=== PATIENT | male | born 1955 | race Caucasian/White ===

== ENCOUNTER 2019-08-22 12:23 | Inpatient (IN) | payer OTHER, SELFPAY ==
[2019-08-17 07:45] VITALS: BMI 22.4
[2019-08-22] VITALS (14 sets, daily range): BP systolic 117–149; BP diastolic 65–95; PULSE 67–79; RESP 10–21; TEMP 36.2–37.1; O2SAT 94–100; BMI 19.1
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
[2019-08-22] MEDS: LACTATED RINGERS 1,000 ML 42 ML IV ×2 (13:45→15:32)
[2019-08-22] MEDS: CLINDAMYCIN 900 MG/50 ML PIGGYBACK 50 MG IV (15:20)
--- NOTE | 2019-08-22 15:20 | SUR.OPER ---
Supine on padded OR bed. Pillow under head, arms secured on padded armboards <90 degree abduction. Safety belt across torso. Non-operative leg secured with tape over blanket over lower leg. Operative leg secured in DeMayo/Javon positioner. Foam padded brace at thigh of operative leg.
[2019-08-22] MEDS: VANCOMYCIN 1,000 MG VIAL 1000 MG TOP (15:35)
[2019-08-22] MEDS: CEFAZOLIN 2 GM/100 ML FROZ.PIGGY IV (15:44)
[2019-08-22] MEDS: BUPIVACAINE 0.25% W/ EPI (PF) 20 ML, TRANEXAMIC ACID 1,000 MG, SODIUM CHLORIDE 0.9% 10 ML INJ (16:29)
[2019-08-22] MEDS: HYDROMORPHONE 2 MG INJ 0.25 MG IV ×3 (17:23→18:50)
--- NOTE | 2019-08-22 17:26 | DI.RAD.S_ITS ---
PROCEDURE: XR KNEE LT 1TO2V INDICATIONS: Post op TECHNIQUE: 2 view(s) of the knee acquired. COMPARISON: [facility] SYDNI Funez, XR KNEE ARTHRITIC SERIES LT, 07/19/2019, 11:30. FINDINGS: Bones: The patient is status post total knee arthroplasty. There is removal of previously seen left prosthesis since the last x-ray. There is a spacer between the distal femur and proximal tibia. Visualized bony structures are intact. Soft tissues: Overlying postoperative changes are noted. IMPRESSION: Removal of the prosthesis with placement of a spacer. Dictated by: Bakari Perez M.D. on 08/23/2019 at 11:22 Approved by: Bakari Perez M.D. on 08/23/2019 at 11:25
[2019-08-22] MEDS: fentaNYL 100 MCG/2 ML INJ 50 MCG IV (17:41)
--- NOTE | 2019-08-22 18:10 | SUR.PHASEI ---
Assumed report from Magdalena, pt medicated with fentanyl and dilaudid. report called to Emery, pain started at 9 to 4, pt transported up to room 213.
--- NOTE | 2019-08-22 18:33 | PC.ADMIT ---
[address] Admission Note: The patient,iRcardo Garcia,64 y/o, was given written information regarding hospital policies, unit procedures and contact persons. Patient's smoking status: Current every day smoker. Vital Signs - 8 hr 08/22/19 13:33 08/22/19 17:00 08/22/19 17:05 Temperature 97.7 F 98.8 F Pulse Rate 68 76 76 Respiratory Rate 16 18 21 Blood Pressure 117/70 141/87 H 138/95 H Pulse Oximetry 100 97 98 08/22/19 17:10 08/22/19 17:25 08/22/19 17:40 Temperature Pulse Rate 71 74 69 Respiratory Rate 18 19 19 Blood Pressure 134/86 149/83 H 133/79 Pulse Oximetry 98 99 99 08/22/19 17:45 08/22/19 17:50 Temperature 97.9 F Pulse Rate 69 67 Respiratory Rate 10 L 14 Blood Pressure 128/80 129/79 Pulse Oximetry 94 100 Patient up from PACU via bed. Patient awake and alert. Denies pain at this time.
[2019-08-22] MEDS: CEFTRIAXONE 2 GM/50 ML FROZ.PIGGY IV (18:43)
[2019-08-22] MEDS: ACETAMINOPHEN 325 MG TABLET 975 MG PO (20:58)
[2019-08-22] MEDS: ASPIRIN EC 81 MG TABLET PO (20:59)
[2019-08-22] MEDS: OXYCODONE IR 10 MG TABLET PO (21:19)
[2019-08-22] MEDS: LACTATED RINGERS 1,000 ML 75 ML IV (22:17)
[2019-08-23] MEDS: OXYCODONE IR 10 MG TABLET PO ×5 (01:04→19:46)
--- NOTE | 2019-08-23 02:38 | PC.NURSE ---
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 Dressing intact to lt knee with hemovac intact and compressed, and EMIGDIO drain green light on. Lt leg immobilizer remains on. Pt has not voided since surgery, and is attempting to use urinal. Vital signs stable. Calf SCD on rt leg only. 0140: Call to Dr. Eng regarding pt being unable to void. Pt states his bladder feels uncomfortably full. Order received to I&O cath as needed for unable to void with over 600cc urine in bladder. 0200: I&O cath in progress: unable to advance catheter into bladder. Pt states he recently had a procedure through the urethra for a kidney stone. Coude catheter size 16 tried, with pt's permission, and catheter was able to advance. 1600cc urine drained from bladder. Pt states he feels much more comfortable.
[2019-08-23 06:00] VITALS: BP 126/70; PULSE 79; RESP 16; TEMP 36.7; O2SAT 98
[2019-08-23 06:47] LABS: Hematocrit 29.8 % (41-53); Hemoglobin 9.7 g/dL (13.5-17.5); Mean Corpuscular HGB Conc 32.7 % (30-36); Mean Corpuscular Hemoglobin 30.4 PG (26-34); Mean Corpuscular Volume 93.1 fL (80-100); Platelet Count 419 X10^3/uL (150-400); Red Cell Distribution Width 14.8 % (11.6-14.8); White Blood Cell Count 12.5 X10^3/uL (4.5-11.0)
--- NOTE | 2019-08-23 07:26 | PM.PNPO.1 ---
Subjective Subjective Date Patient Seen: 08/23/19 Time Patient Seen: 07:28 Interval history: Post op day 1 s/p left knee revision. Patient admitted for IV antibiotic therapy (Ceftriaxone) for joint infection.Overnight patient had urinary retention and had a straight cath (1600 ml removed). Pain was well controlled over night with oxycodone and tylenol. Patient has not ambulated or worked with PT. Patient discussed desire to discharge home with assistance rather than SNF. Patient denies fever, chills, nausea, vomiting, chest pain, shortness of breath. Exam Vital Signs (past 8 hours): - 08/23/19 06:00 Temperature 98.0 F Pulse Rate 79 Respiratory Rate 16 Blood Pressure 126/70 Pulse Oximetry 98 Oxygen Delivery Method Nasal Cannula Oxygen Flow Rate 0 Narrative Exam Narrative: 64 year old male sitting upright in bed comfortably, in no apparent distress. A&Ox3. Knee immobilizer in place on left knee. EMIGDIO dressing CDI. Hemovac in place. Drainage is sanguineous. Sensory function grossly intact to light sensation in lower extremities bilaterally. Patient is able to actively dorsiflex/plantar flex. Dorsalis Pedis 2+ bilaterally. Objective Labs Result Diagrams: 08/23/19 06:10 Labs: Laboratory Results - last 24 hr 08/23/19 06:10 WBC 12.5 H RBC 3.20 L Hgb 9.7 L Hct 29.8 L MCV 93.1 MCH 30.4 MCHC 32.7 RDW 14.8 Plt Count 419 H Assessment & Plan Post-op Postoperative Procedures: Procedures Operation Date: 08/22/19 14:45 Actual Procedures Side Surgeon p Removal of knee prosthesis, placement of antibiotic spacer Left Ross Mejia MD Time Spent With Patient Time with patient: less than 15 minutes Quality VTE Deep Vein Thrombosis/Pulmonary Embolism Present on Admission: No
[2019-08-23 07:52] VITALS: BP 124/68; PULSE 77; RESP 18; TEMP 36.6; O2SAT 97
[2019-08-23] MEDS: ACETAMINOPHEN 325 MG TABLET 975 MG PO ×3 (09:25→21:28)
[2019-08-23] MEDS: ASPIRIN EC 81 MG TABLET PO ×2 (09:26→21:29)
--- NOTE | 2019-08-23 09:29 | PC.NURSE ---
Addendum entered by Janice Moraes R.N. 08/23/19 13:17: Patient called to have SCD removed from right leg, unable to sleep with it on. Reminded pt to preform ankle pumps, removed SCD, drain is compressed, patient denies pain. Addendum entered by Janice Moraes R.N. 08/23/19 13:11: Patient back to bed after working with PT. SCD right leg reapplied, tray table in place, bed rails x [address] in place, drain in place, patient denies SOB, chest pain, N/V, or dizziness at this time. IV is patent and infusing LR @75ml/hr. Patient denies needs at this time. Original Note: Patient repostioned in bed. Reports pain of 8. Patient declined his Atenolol and Dulcolax. Patient denies further needs at this time.
--- NOTE | 2019-08-23 10:59 | DI.RAD.S_ITS ---
PROCEDURE: XR CHEST FOR PICC 1V INDICATIONS: picc line placement TECHNIQUE: One view of the chest was acquired. COMPARISON: [facility], CR, XR CHEST 1 VIEW, 07/06/2019, 13:38. FINDINGS: Surgical changes and devices: A left-sided PICC line catheter is identified with the tip overlying the mid superior vena cava. Lungs and pleura: The included portions of the lungs are grossly unremarkable. Please note that the entire right lung is not included. There is no definite pneumothorax or large effusion. No large area of consolidation is evident. Mediastinum: Mediastinal contours appear normal. Heart size is normal. There is aortic atherosclerosis. Bones and chest wall: No suspicious bony lesions. Overlying soft tissues appear unremarkable. IMPRESSION: Left-sided PICC line catheter is positioned with the tip overlying the mid superior vena cava. Dictated by: Pedro Veloz M.D. on 08/23/2019 at 10:37 Approved by: Pedro Veloz M.D. on 08/23/2019 at 10:38
[2019-08-23 11:04] VITALS: BP 131/80; PULSE 74; RESP 16; TEMP 37; O2SAT 97
--- NOTE | 2019-08-23 12:58 | PT.IIE ---
Current Diagnoses Infection and inflammatory reaction due to other internal orthopedic prosthetic devices, implants and grafts, initial encounter (08/22/19) Presence of left artificial knee joint (08/22/19) Presence of unspecified artificial knee joint (08/22/19) Surgery Performed Operation Date: 08/22/19 14:45 Actual Procedures p Removal of knee prosthesis, placement of antibiotic spacer(Left) - Ross Mejia MD Surgical History (Last Updated 08/17/19 @ 08:33 by Felipa Buckley RN) History of total knee arthroplasty (Acute ~04/2018) Hx of bilateral inguinal hernia repair (Acute) Medical History (Last Updated 08/17/19 @ 08:34 by Felipa Buckley RN) COPD (chronic obstructive pulmonary disease) (Acute) Current every day smoker (Acute) Fatty liver (Acute) Hearing impaired (Acute) HTN (hypertension) (Acute) Kidney stone (Acute ~06/2019) Migraines (Acute) Neuropathy (Acute) PTSD (post-traumatic stress disorder) (Acute) Syncopal episodes (Acute ~06/2019) Physical Therapy Inpatient Evaluation/Re-Eval M1 PT/OT-IP Prior Functional Status Start: 08/23/19 12:19 Freq: NEEDED Status: Active Protocol: Document 08/23/19 12:19 NFW (Rec: 08/23/19 12:58 NFW [id number]) Medical Review Prior Functional Status Medical History Reviewed Yes Communication Patient very open and answers all questions appropriately. Mobility and Gait Prior to recent surgery patient ambulated with a small base quad cane. Activities of Daily Living and IADL's Prior to recent surgery patient reports that was independent with all ADL's and IADL's. Prior Functional Level (Other details) Patient does not drive. His father does all the driving. Patient active in doing all the cooking, his dad does the cleanup. Does the grocery shopping with his dad. Social History Household Members family Living Arrangements Apartment/Condo Number of Floors (Floors) One Floor Home Environment Standard Height Toilet,Tub/ Shower Home Equipment Front Wheel Walker,Four Wheel Walker,Quad Cane,Grab Bars Near Toilet,Grab Bars In Shower Additional Social History Comment Patient lives in an apartment with his Dad. His Dad is 83 yrs old and described by patient to be in good health. M2 PT-IP Current Condition Start: 08/23/19 12:19 Freq: NEEDED Status: Active Protocol: Document 08/23/19 12:19 NFW (Rec: 08/23/19 12:58 NFW [id number]) Physical Therapy Current Condition Current Condition Evaluation Date 08/23/19 Treatment Diagnosis Septic left knee, 08/22/19 had removal of hardware from TKA Precautions Brace Knee Immobilizer - worn at all times Other Precautions Non Weight Bearing LLE Weight Bearing Status Weight Bearing Status Non-Weight Bearing M3 PT-IP Subjective Start: 08/23/19 12:19 Freq: NEEDED Status: Active Protocol: Document 08/23/19 12:19 NFW (Rec: 08/23/19 12:58 NFW [id number]) Subjective Physical Therapy Visit Type Type Initial Evaluation Visit Start Time 11:30 Visit Stop Time 12:15 Total Visit Minutes 45 Number of NASCAR DRIVER Visits 0 Physical Therapy Visit Comments Patient Comments Patient concerned about getting out of bed due to pain in his left knee. Did agree after awhile to proceed with treatment provided. Patient Goals Return to his apartment where he lives with his dad. Therapy Pain Assessment Pain When Pain Assessed During Mobility Pain Present Pain Present Pain Reported Location left knee Intensity 7 Scale Used Numeric (1 - 10) Description Sharp,Shooting Pain Behaviors Facial Grimacing Pain Management Techniques Distraction,Modification of Treatment,Re-positioning, Timing of Activity with Medications M4 PT-IP Mobility and Gait Start: 08/23/19 12:19 Freq: NEEDED Status: Active Protocol: Document 08/23/19 12:19 NFW (Rec: 08/23/19 12:58 [facility] [id number]) PT-Bed Mobility Assessment Supine to Sit Supine to Sit Moderate Assistance,1 Person Assistance Sit to Supine Sit to Supine Moderate Assistance,1 Person Assistance Scooting Scooting to Edge of Bed Minimal Assistance Scooting Up and Down in Bed Minimal Assistance PT-Transfer Assessment Sit to and From Stand Sit to and from Stand Minimal Assistance,1 Person Assistance,Use of Upper Extremities Equipment Transfer Assistive Device Gait Belt,Front Wheeled Walker Orthotic/Prosthetic Devices or Brace: Yes Transfers Transfer Destination Bed Transfer Ability Level of Assist Minimal Assistance,1 Person Assistance Comments Mobility Comments Patient requires assistance with movement and support of LLE when going between supine to sitting and then to standing. Gait Assessment Gait Gait Assistance Required: Contact Guard Assist,1 Person Assist Distance (Feet) 10 Able to Maintain Weight Bearing Status Yes During Gait Assistive Devices Assistive Device Gait Belt,Front Wheeled Walker Orthotic/Prosthetic Devices or Brace: Yes Gait Deviations General Gait Pattern Within Normal Limits Factors Limiting Gait Function Factors Limiting Gait Function Decreased Activity Tolerance, Decreased Strength,Limited Range of Motion,Pain Comments Gait Comments Patient able to ambulate NWB LLE for maximum of 10' in the room. Actual form is good. Restricted mainly by fatigue and some pain and fear of reinjury to LLE. PT-Balance Assessment Comments Other Balance Tests/Deviations/Treatment Unable to test at this time. : Functional Assessments Other Functional Tests Performed Unable to test at this time. M5 PT-IP Objective Assessments Start: 08/23/19 12:19 Freq: NEEDED Status: Active Protocol: Document 08/23/19 12:19 NFW (Rec: 08/23/19 12:58 NFW [id number]) Orientation Orientation/Cognition Level of Alertness Alert Orientation Name,Birthday,Place,Situation Language Function Ability No Deficits Noted Safety Awareness Decreased Safety Awareness Memory Description No Deficits Noted Comments Patient cooperative and initially did not want to participate in any treatment. He performed well but does have fear of increase pain into LLE. Gross Range of Motion Upper Extremity ROM Assessment Within Functional Limits Lower Extremity ROM Impairments ROM LLE not tested, functional ROM right LE. Strength Upper Extremity Strength Assessment Within Functional Limits Lower Extremity Strength Assessment Left Impaired Comments Strength Comments Weak quad set LLE. Apprehensive about performing SLR and did not attempt. Muscle Tone Muscle Tone WNL No M6 PT-IP Treatment Start: 08/23/19 12:19 Freq: NEEDED Status: Active Protocol: Document 08/23/19 12:19 NFW (Rec: 08/23/19 12:58 NF [id number]) Physical Therapy Treatment Exercises Exercises Ankle Pumps,Gluteal Sets,Quad Sets Education Education Provided Precautions,Weight Bearing Status Other Treatments Other Treatment Performed BP at rest 131/64, pulse 76, O2 96. Measured in supine prior to treatment. M7 PT-IP Assessment and Plan Start: 08/23/19 12:19 Freq: NEEDED Status: Active Protocol: Document 08/23/19 12:19 NFW (Rec: 08/23/19 12:58 NFW [id number]) PT Summary Assessment and Plan Potential Rehabilitation Potential Excellent Status of Condition at Evaluation Evolving Summary Impairments Pain,ROM,Strength,Balance, Coordination,Sensation,Tone, Cognition,Bed Mobility, Transfers,Gait,Activity Tolerance Progress Towards Goals Progressing Toward Goals Assessment Summary Patient s/p removal of total knee prosthesis secondary to sepsis. Spacer placed. Limited at this point by pain and swelling LLE and fear of reinjury to LLE. Good awareness of NWB statis. Goals Bed Mobility Goal Independent Transfer Goal Independent,Front Wheeled Walker Gait Goal Independent,Front Wheel Walker Gait Distance 200 Days to Meet Goals 3 Frequency of Treatment Frequency Of Treatment Twice a Day Treatment Plan Physical Therapy Treatment Plan Bed Mobility Training,Transfer Training,Gait Training, Therapeutic Exercise,Balance Retraining,Post Op Education, Discharge Planning, Coordination Retraining Recommendations To Nursing Amount of Assist Needed 1 Person Assist Discharge Recommendations PT Discharge Recommendations Home with Assistance Equipment Needed for Home Before Possible raised toilet seat. Discharge
[2019-08-23 16:00] VITALS: BP 117/69; PULSE 74; RESP 18; TEMP 36.6; O2SAT 97
--- NOTE | 2019-08-23 17:17 | PT.IPTN ---
Current Diagnoses Infection and inflammatory reaction due to other internal orthopedic prosthetic devices, implants and grafts, initial encounter (08/22/19) Presence of left artificial knee joint (08/22/19) Presence of unspecified artificial knee joint (08/22/19) Surgery Performed Operation Date: 08/22/19 14:45 Actual Procedures p Removal of knee prosthesis, placement of antibiotic spacer(Left) - Ross Mejia MD Physical Therapy Treatment Note M2 PT-IP Current Condition Start: 08/23/19 12:19 Freq: NEEDED Status: Active Protocol: Document 08/23/19 12:19 NFW (Rec: 08/23/19 12:58 NFW [id number]) Physical Therapy Current Condition Current Condition Evaluation Date 08/23/19 Treatment Diagnosis Septic left knee, 08/22/19 had removal of hardware from TKA Precautions Brace Knee Immobilizer - worn at all times Other Precautions Non Weight Bearing LLE Weight Bearing Status Weight Bearing Status Non-Weight Bearing M3 PT-IP Subjective Start: 08/23/19 12:19 Freq: NEEDED Status: Active Protocol: Document 08/23/19 17:15 NFW (Rec: 08/23/19 17:17 NFW [id number]) Subjective Physical Therapy Visit Type Type Patient Refusal Notes Patient just received his pizza that he was been waiting for all day. Requested to hold on PT and that he will work doubly hard tomorrow. Patient did perform well in therapy this morning. Needs most assist in lifting or lowering LLE when getting in and out of bed. M4 PT-IP Mobility and Gait Start: 08/23/19 12:19 Freq: NEEDED Status: Active Protocol: Document 08/23/19 12:19 NFW (Rec: 08/23/19 12:58 NFW [id number]) PT-Bed Mobility Assessment Supine to Sit Supine to Sit Moderate Assistance,1 Person Assistance Sit to Supine Sit to Supine Moderate Assistance,1 Person Assistance Scooting Scooting to Edge of Bed Minimal Assistance Scooting Up and Down in Bed Minimal Assistance PT-Transfer Assessment Sit to and From Stand Sit to and from Stand Minimal Assistance,1 Person Assistance,Use of Upper Extremities Equipment Transfer Assistive Device Gait Belt,Front Wheeled Walker Orthotic/Prosthetic Devices or Brace: Yes Transfers Transfer Destination Bed Transfer Ability Level of Assist Minimal Assistance,1 Person Assistance Comments Mobility Comments Patient requires assistance with movement and support of LLE when going between supine to sitting and then to standing. Gait Assessment Gait Gait Assistance Required: Contact Guard Assist,1 Person Assist Distance (Feet) 10 Able to Maintain Weight Bearing Status Yes During Gait Assistive Devices Assistive Device Gait Belt,Front Wheeled Walker Orthotic/Prosthetic Devices or Brace: Yes Gait Deviations General Gait Pattern Within Normal Limits Factors Limiting Gait Function Factors Limiting Gait Function Decreased Activity Tolerance, Decreased Strength,Limited Range of Motion,Pain Comments Gait Comments Patient able to ambulate NWB LLE for maximum of 10' in the room. Actual form is good. Restricted mainly by fatigue and some pain and fear of reinjury to LLE. PT-Balance Assessment Comments Other Balance Tests/Deviations/Treatment Unable to test at this time. : Functional Assessments Other Functional Tests Performed Unable to test at this time. M5 PT-IP Objective Assessments Start: 08/23/19 12:19 Freq: NEEDED Status: Active Protocol: Document 08/23/19 12:19 NFW (Rec: 08/23/19 12:58 NFW [id number]) Orientation Orientation/Cognition Level of Alertness Alert Orientation Name,Birthday,Place,Situation Language Function Ability No Deficits Noted Safety Awareness Decreased Safety Awareness Memory Description No Deficits Noted Comments Patient cooperative and initially did not want to participate in any treatment. He performed well but does have fear of increase pain into LLE. Gross Range of Motion Upper Extremity ROM Assessment Within Functional Limits Lower Extremity ROM Impairments ROM LLE not tested, functional ROM right LE. Strength Upper Extremity Strength Assessment Within Functional Limits Lower Extremity Strength Assessment Left Impaired Comments Strength Comments Weak quad set LLE. Apprehensive about performing SLR and did not attempt. Muscle Tone Muscle Tone WNL No M6 PT-IP Treatment Start: 08/23/19 12:19 Freq: NEEDED Status: Active Protocol: Document 08/23/19 12:19 NFW (Rec: 08/23/19 12:58 NFW [id number]) Physical Therapy Treatment Exercises Exercises Ankle Pumps,Gluteal Sets,Quad Sets Education Education Provided Precautions,Weight Bearing Status Other Treatments Other Treatment Performed BP at rest 131/64, pulse 76, O2 96. Measured in supine prior to treatment. M7 PT-IP Assessment and Plan Start: 08/23/19 12:19 Freq: NEEDED Status: Active Protocol: Document 08/23/19 12:19 NFW (Rec: 08/23/19 12:58 KEIRA [id number]) PT Summary Assessment and Plan Potential Rehabilitation Potential Excellent Status of Condition at Evaluation Evolving Summary Impairments Pain,ROM,Strength,Balance, Coordination,Sensation,Tone, Cognition,Bed Mobility, Transfers,Gait,Activity Tolerance Progress Towards Goals Progressing Toward Goals Assessment Summary Patient s/p removal of total knee prosthesis secondary to sepsis. Spacer placed. Limited at this point by pain and swelling LLE and fear of reinjury to LLE. Good awareness of NWB statis. Goals Bed Mobility Goal Independent Transfer Goal Independent,Front Wheeled Walker Gait Goal Independent,Front Wheel Walker Gait Distance 200 Days to Meet Goals 3 Frequency of Treatment Frequency Of Treatment Twice a Day Treatment Plan Physical Therapy Treatment Plan Bed Mobility Training,Transfer Training,Gait Training, Therapeutic Exercise,Balance Retraining,Post Op Education, Discharge Planning, Coordination Retraining Recommendations To Nursing Amount of Assist Needed 1 Person Assist Discharge Recommendations PT Discharge Recommendations Home with Assistance Equipment Needed for Home Before Possible raised toilet seat. Discharge
[2019-08-23] MEDS: CEFTRIAXONE 2 GM/50 ML FROZ.PIGGY IV (17:45)
[2019-08-23 20:00] VITALS: BP 123/79; PULSE 74; RESP 18; TEMP 36.3; O2SAT 99
[2019-08-23] MEDS: DOCUSATE 100 MG CAPSULE PO (21:29)
[2019-08-24] VITALS: BP 123/74; PULSE 70; RESP 16; TEMP 37.2; O2SAT 97
[2019-08-24] MEDS: OXYCODONE IR 10 MG TABLET PO (00:02)
[2019-08-24] MEDS: LACTATED RINGERS 1,000 ML 75 ML IV ×2 (00:07→13:26)
--- NOTE | 2019-08-24 01:23 | PC.NURSE ---
Administrative Project Coordinator Note: 0015: Awake, resting in bed. Vital signs stable. PICC in place in lt upper arm with dressing cdi; no redness, drainage or swelling at site; LR infusing at 75cc/hr. IV in lt AC in place, saline locked. Lt knee immobilizer remains on; hemovac intact and compressed, EMIGDIO drain with green light on. Pt having pain in lt knee; medicated with Oxycodone 10mg po. Pt states that this pain medication is not providing much pain relief. 0115: Call to Dr. Eng regarding Oxycodone being ineffective pain medication. New orders are to try Dilaudid 2-4mg po Q3hrs PRN for pain. Pt sleeping at this time.
[2019-08-24] MEDS: HYDROMORPHONE 2 MG TABLET 4 MG PO (03:40)
[2019-08-24 06:25] VITALS: BP 118/68; PULSE 69; RESP 16; TEMP 36.6; O2SAT 98
[2019-08-24 07:18] VITALS: BP 119/69; PULSE 74; RESP 18; TEMP 36.8; O2SAT 98
--- NOTE | 2019-08-24 08:18 | P.PN_ITS ---
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 Continues to complain of noticeable pain. He states he has not been doing weight-bearing on the left leg because of increased knee pain. He was treated with oxycodone 10 mg initially but was not getting good relief. He was then tried on Dilaudid 4 mg states that did not work well. He states he has had the best relief with Percocet. He had also has ibuprofen 800 mg ordered which he has not been getting. He does have a PICC line and receiving ceftriaxone 2 g q.d.. Cultures are still pending for final. Patient lives with his father who is 83 years old and not able to really help him much. Patient is interested in considering SNF for few days before going home. Hemovac drain 50 mL the past shift and 310 for the past 24 hours. Exam Vital Signs (past 8 hours): - 08/24/19 06:25 Temperature 97.8 F Pulse Rate 69 Respiratory Rate 16 Blood Pressure 118/68 Pulse Oximetry 98 Oxygen Delivery Method Room Air Oxygen Flow Rate 0 Narrative Exam Narrative: Alert, oriented no acute distress lying in bed. Left leg. Kendy dressing to left knee. Hemovac in place. No calf pain or swelling. Knee immobilizer in place. Moderate swelling of the left knee. Noted full pain with movement of the knee. Objective Labs Result Diagrams: 08/23/19 06:10 Assessment & Plan Post-op Postoperative Procedures: Procedures Operation Date: 08/22/19 14:45 Actual Procedures Side Surgeon p Removal of knee prosthesis, placement of antibiotic spacer Left Ross Mejia MD Will change patient's pain medication to Percocet to see if this gives him better relief. Will also have him start taking ibuprofen 800 mg regularly. Will keep Hemovac in today because of drainage. Awaiting final on culture results to plan antibiotic discharge. Will discuss with finished goods planner about SNF. Quality VTE Deep Vein Thrombosis/Pulmonary Embolism Present on Admission: No
[2019-08-24] MEDS: IBUPROFEN 400 MG TABLET 800 MG PO ×3 (08:35→21:41)
[2019-08-24] MEDS: OXYCODONE/ACETAMINOPHEN 5/325 TABLET 2 TAB PO ×3 (08:35→18:24)
[2019-08-24] MEDS: ATENOLOL 25 MG TABLET PO (08:35)
[2019-08-24] MEDS: ASPIRIN EC 81 MG TABLET PO (08:35)
[2019-08-24] MEDS: DOCUSATE 100 MG CAPSULE PO (08:36)
--- NOTE | 2019-08-24 11:15 | PT.IPTN ---
Current Diagnoses Infection and inflammatory reaction due to other internal orthopedic prosthetic devices, implants and grafts, initial encounter (08/22/19) Presence of left artificial knee joint (08/22/19) Presence of unspecified artificial knee joint (08/22/19) Surgery Performed Operation Date: 08/22/19 14:45 Actual Procedures p Removal of knee prosthesis, placement of antibiotic spacer(Left) - Ross Mejia MD Physical Therapy Treatment Note M2 PT-IP Current Condition Start: 08/23/19 12:19 Freq: NEEDED Status: Active Protocol: Document 08/23/19 12:19 NFW (Rec: 08/23/19 12:58 NFW [id number]) Physical Therapy Current Condition Current Condition Evaluation Date 08/23/19 Treatment Diagnosis Septic left knee, 08/22/19 had removal of hardware from TKA Precautions Brace Knee Immobilizer - worn at all times Other Precautions Non Weight Bearing LLE Weight Bearing Status Weight Bearing Status Non-Weight Bearing M3 PT-IP Subjective Start: 08/23/19 12:19 Freq: NEEDED Status: Active Protocol: Document 08/24/19 11:15 GGD (Rec: 08/24/19 11:48 GGD [id number]) Subjective Physical Therapy Visit Type Type Treatment Note Visit Start Time 10:50 Visit Stop Time 11:13 Total Visit Minutes 23 Number of RUBBER COMPOUNDER FORMULATOR Visits 1 Physical Therapy Visit Comments Patient Comments Pt states he needs to use the bathroom. Therapy Pain Assessment Pain When Pain Assessed During Mobility Pain Present Pain Present Pain Reported M4 PT-IP Mobility and Gait Start: 08/23/19 12:19 Freq: NEEDED Status: Active Protocol: Document 08/24/19 11:15 GGD (Rec: 08/24/19 11:48 GGD [id number]) PT-Bed Mobility Assessment Supine to Sit Supine to Sit Moderate Assistance,1 Person Assistance Sit to Supine Sit to Supine Moderate Assistance,1 Person Assistance Scooting Scooting to Edge of Bed Minimal Assistance Scooting Up and Down in Bed Minimal Assistance PT-Transfer Assessment Sit to and From Stand Sit to and from Stand Minimal Assistance,1 Person Assistance,Use of Upper Extremities Equipment Transfer Assistive Device Gait Belt,Front Wheeled Walker Orthotic/Prosthetic Devices or Brace: Yes Transfers Transfer Destination Bed Transfer Ability Level of Assist Minimal Assistance,1 Person Assistance Comments Mobility Comments Mod A for left LE with bed mobility. Gait Assessment Gait Gait Assistance Required: Contact Guard Assist,1 Person Assist Distance (Feet) 25 Able to Maintain Weight Bearing Status Yes During Gait Assistive Devices Assistive Device Gait Belt,Front Wheeled Walker Orthotic/Prosthetic Devices or Brace: Yes Gait Deviations General Gait Pattern Within Normal Limits Factors Limiting Gait Function Factors Limiting Gait Function Decreased Activity Tolerance, Decreased Strength,Limited Range of Motion,Pain M5 PT-IP Objective Assessments Start: 08/23/19 12:19 Freq: NEEDED Status: Active Protocol: Document 08/23/19 12:19 NFW (Rec: 08/23/19 12:58 NFW [id number]) Orientation Orientation/Cognition Level of Alertness Alert Orientation Name,Birthday,Place,Situation Language Function Ability No Deficits Noted Safety Awareness Decreased Safety Awareness Memory Description No Deficits Noted Comments Patient cooperative and initially did not want to participate in any treatment. He performed well but does have fear of increase pain into LLE. Gross Range of Motion Upper Extremity ROM Assessment Within Functional Limits Lower Extremity ROM Impairments ROM LLE not tested, functional ROM right LE. Strength Upper Extremity Strength Assessment Within Functional Limits Lower Extremity Strength Assessment Left Impaired Comments Strength Comments Weak quad set LLE. Apprehensive about performing SLR and did not attempt. Muscle Tone Muscle Tone WNL No M6 PT-IP Treatment Start: 08/23/19 12:19 Freq: NEEDED Status: Active Protocol: Document 08/24/19 11:15 GGD (Rec: 08/24/19 11:48 GGD [id number]) Physical Therapy Treatment Exercises Exercises Ankle Pumps,Gluteal Sets,Quad Sets Education Education Provided Precautions,Weight Bearing Status M7 PT-IP Assessment and Plan Start: 08/23/19 12:19 Freq: NEEDED Status: Active Protocol: Document 08/24/19 11:15 GGD (Rec: 08/24/19 11:48 GGD [id number]) PT Summary Assessment and Plan Summary Assessment Summary Pt needs mod A with left LE with bed mobility. Pt was able to progress gait distance with NWB on left LE. Frequency of Treatment Frequency Of Treatment Twice a Day Treatment Plan Physical Therapy Treatment Plan Bed Mobility Training,Transfer Training,Gait Training, Therapeutic Exercise,Balance Retraining,Post Op Education, Discharge Planning, Coordination Retraining Recommendations To Nursing Amount of Assist Needed 1 Person Assist Discharge Recommendations PT Discharge Recommendations Home with Assistance
[2019-08-24 12:27] VITALS: BP 137/89; PULSE 66; RESP 16; TEMP 36.8; O2SAT 98
--- NOTE | 2019-08-24 13:00 | PC.NURSE ---
day shift pt having issues with pain control overnight. States PO dilaudid does not help nor does oxycodone. Pt states only thing that has helped in percocet. Explained to pt that that is oxy and tylenol, he will not believe it. Notified PA and order for percocet obtained. This was given with ibuprofen. Pt sleeping afterwards. on awakening, states pain is 3-4/10 and he will alert staff when he needs more meds. culture from knee grew staph aureus, unsure of sensitivities yet. Placed on contact precautions until MRSA r/o. Notified , she started pt on vanco in addition to current abx. pt very nervous about precautions and word MRSA. explained to pt and he was reassured.
[2019-08-24] MEDS: VANCOMYCIN 1,000 MG/200 ML PIGGYBACK 200 MG IV (13:27)
[2019-08-24 14:46] LABS: BUN Creatinine Ratio 17.5 (6-22); Blood Urea Nitrogen 14 mg/dL (9-20); Calcium 8.8 mg/dL (8.4-10.2); Carbon Dioxide 29 mmol/L (22-32); Chloride 102 mmol/L (98-107); Estimated Glomerular Filt Rate > 60.0 mL/min (>60); Glucose 101 mg/dL (80-110); Potassium 4.5 mmol/L (3.4-5.1); Sodium 139 mmol/L (137-145)
[2019-08-24 14:50] LABS: HEMOLYSIS 51 (0-50)
--- NOTE | 2019-08-24 15:10 | PT.IPTN ---
Current Diagnoses Infection and inflammatory reaction due to other internal orthopedic prosthetic devices, implants and grafts, initial encounter (08/22/19) Presence of left artificial knee joint (08/22/19) Presence of unspecified artificial knee joint (08/22/19) Surgery Performed Operation Date: 08/22/19 14:45 Actual Procedures p Removal of knee prosthesis, placement of antibiotic spacer(Left) - Ross Mejia MD Physical Therapy Treatment Note M2 PT-IP Current Condition Start: 08/23/19 12:19 Freq: NEEDED Status: Active Protocol: Document 08/23/19 12:19 NFW (Rec: 08/23/19 12:58 NFW [id number]) Physical Therapy Current Condition Current Condition Evaluation Date 08/23/19 Treatment Diagnosis Septic left knee, 08/22/19 had removal of hardware from TKA Precautions Brace Knee Immobilizer - worn at all times Other Precautions Non Weight Bearing LLE Weight Bearing Status Weight Bearing Status Non-Weight Bearing M3 PT-IP Subjective Start: 08/23/19 12:19 Freq: NEEDED Status: Active Protocol: Document 08/24/19 15:10 AB (Rec: 08/24/19 17:09 AB [id number]) Subjective Physical Therapy Visit Type Type Treatment Note Visit Start Time 15:10 Visit Stop Time 15:47 Total Visit Minutes 37 Number of COMPLAINT INSPECTOR Visits 0 Physical Therapy Visit Comments Patient Comments pt agreeable to do PT Therapy Pain Assessment Pain When Pain Assessed At Rest Pain Present Pain Present Pain Reported Location left knee Intensity 4 Scale Used increased to 7/10 with mobility Pain Behaviors Facial Grimacing,Holding Area, Wincing Pain Management Techniques Modification of Treatment, Timing of Activity with Medications M4 PT-IP Mobility and Gait Start: 08/23/19 12:19 Freq: NEEDED Status: Active Protocol: Document 08/24/19 15:10 AB (Rec: 08/24/19 17:09 AB [id number]) PT-Bed Mobility Assessment Supine to Sit Supine to Sit Moderate Assistance,1 Person Assistance Sit to Supine Sit to Supine Moderate Assistance,1 Person Assistance PT-Transfer Assessment Sit to and From Stand Sit to and from Stand Contact Guard Assistance,1 Person Assistance,Use of Upper Extremities Equipment Transfer Assistive Device Gait Belt,Front Wheeled Walker Orthotic/Prosthetic Devices or Brace: Yes Transfers Transfer Destination Toilet Transfer Technique pt ambulated to the toilet using FWW Transfer Ability Level of Assist Standby Assistance,Contact Guard Assistance,1 Person Assistance,Use of Upper Extremities Comments Mobility Comments pt completed bed mobility supine to sit mod A to assist LLE. pt also positioned RLE under LLE to assist. pt completed sit to stand CGA and requested to use the toilet and ambulated to the toilet using FWW SBA. Pt was able to maintain standing using FWW while toileting. pt was able to maintain NWB on LLE. pt went back to bed and ambulated using FWW SBA. pt completed sit to supine mod A and cues requiring assist to elevated LLE up in bed. pt used RLE to assist LLE. positioned pt in bed. pt inquired regarding adaptive equipement: leg human insights lead ads marketing, dress aide etc. asked pt if he wants to do trainign with use of leg human insights lead ads marketing and agreed to do it next tx session. call light and table placed within reach. Gait Assessment Gait Gait Assistance Required: Standby Assistance Distance (Feet) 10 Able to Maintain Weight Bearing Status Yes During Gait Assistive Devices Assistive Device Gait Belt,Front Wheeled Walker Orthotic/Prosthetic Devices or Brace: Yes Factors Limiting Gait Function Factors Limiting Gait Function Decreased Activity Tolerance, Decreased Strength,Difficulty Following Directions,Limited Range of Motion,Pain,Poor Balance,Poor Safety Awareness Comments Gait Comments pt ambulated in room to transfer bed <>toilet using FWW. pls refer to mobility section for details. M5 PT-IP Objective Assessments Start: 08/23/19 12:19 Freq: NEEDED Status: Active Protocol: Document 08/23/19 12:19 NFW (Rec: 08/23/19 12:58 NFW [id number]) Orientation Orientation/Cognition Level of Alertness Alert Orientation Name,Birthday,Place,Situation Language Function Ability No Deficits Noted Safety Awareness Decreased Safety Awareness Memory Description No Deficits Noted Comments Patient cooperative and initially did not want to participate in any treatment. He performed well but does have fear of increase pain into LLE. Gross Range of Motion Upper Extremity ROM Assessment Within Functional Limits Lower Extremity ROM Impairments ROM LLE not tested, functional ROM right LE. Strength Upper Extremity Strength Assessment Within Functional Limits Lower Extremity Strength Assessment Left Impaired Comments Strength Comments Weak quad set LLE. Apprehensive about performing SLR and did not attempt. Muscle Tone Muscle Tone WNL No M6 PT-IP Treatment Start: 08/23/19 12:19 Freq: NEEDED Status: Active Protocol: Document 08/24/19 15:10 AB (Rec: 08/24/19 17:09 AB [id number]) Physical Therapy Treatment Education Education Provided Weight Bearing Status,Safety M7 PT-IP Assessment and Plan Start: 08/23/19 12:19 Freq: NEEDED Status: Active Protocol: Document 08/24/19 15:10 AB (Rec: 08/24/19 17:09 AB [id number]) PT Summary Assessment and Plan Potential Rehabilitation Potential Good Summary Impairments Pain,ROM,Strength,Balance, Coordination,Sensation,Tone, Cognition,Bed Mobility, Transfers,Gait,Activity Tolerance Progress Towards Goals Progressing Toward Goals Assessment Summary pt requiring mod A with bed mobility and SBA to CGA with transfers/ambulation using FWW . Pt is NWB on LLE affecting independence. pt will not have much assistance at home and stated that his father might help some. Pt also will have ongoing IV antibiotic needs per doctor's note. d/c plan depending on mobility progress and assistance at home but may require SNF for IV antibiotic needs. will continue to assess. Goals Bed Mobility Goal Independent Transfer Goal Independent,Front Wheeled Walker Gait Goal Independent,Front Wheel Walker Gait Distance 200 Days to Meet Goals 3 Frequency of Treatment Frequency Of Treatment Once a Day Treatment Plan Physical Therapy Treatment Plan Bed Mobility Training,Transfer Training,Gait Training, Therapeutic Exercise,Balance Retraining,Post Op Education, Discharge Planning, Coordination Retraining Other Recommendations and Next Treatment transfers, ambulation, leg Focus human insights lead ads marketing use Recommendations To Nursing Amount of Assist Needed 1 Person Assist Discharge Recommendations PT Discharge Recommendations Home with Assistance,SNF Rehab
[2019-08-24 15:55] VITALS: BP 123/73; PULSE 60; RESP 18; TEMP 36.3; O2SAT 98
--- NOTE | 2019-08-24 16:08 | CM.IDA ---
Initial DCP Assessment Note: Pt is a 64 yo male, resident of [facility]. 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 PCP: Shruti Sharma [place]: [place] Reviewed chart. TC placed to Iva Hernandez [place] P# [phone]. Discussed pt's need for 6 wks IV abx w/ NWbing on knee and no support at home = need for SNF. Pt is not service connected and does not qualify for SNF covered by [place] although he does have Medicare A+B sec to disability benefits. Iva explained that he could potentially go to SNF Med [facility], and through the correct channels and referrals by the [place] clinic staff he could go home after the 20 days w/Home infusion covered by his [place] coverage. Later listed to a VM from [facility] [place] P# [phone] who explained Iva had started the process to make referral for potential home infusion and Tatyana had questions to include what MD would follow IV abx after DC ? What is the drug, dosing, duration etc? PICC? and Infusion Co of choice? Met w/pt to review above and DC options. Pt hopeful to DC to a SNF in [facility] and has no SNF preference. Explained Medicare benefit, pt states he has Medicare, Medicaid (food stamps, no medical assist?) and [place] Choice. Pt gave cards for this [employer] to copy. Pt wants hospital to bill [facility] per admission notes. This [employer] unable to begin SNF search today, PASRR needs to be completed. P: DC likely to SNF w/ Med A for IV abx over the next day or two, awaiting results on sensitivities In addition: will pt's Medicaid assist w/ co-pay at SNF on the day? If not, Pt may need to transition home w/assist from [place] for home infusion after 20 days at SNF [facility]
[2019-08-24] MEDS: CEFTRIAXONE 2 GM/50 ML FROZ.PIGGY IV (18:15)
[2019-08-24 19:31] LABS: Vancomycin Trough 8.2 ug/mL (10-20)
[2019-08-24 19:35] VITALS: BP 110/55; PULSE 62; RESP 18; TEMP 36.6; O2SAT 99
[2019-08-24] MEDS: VANCOMYCIN 1,250 MG in SODIUM CHLORIDE 0.9% 250 ML IV (19:58)
[2019-08-24] MEDS: ACETAMINOPHEN 325 MG TABLET 975 MG PO (20:07)
--- NOTE | 2019-08-24 22:29 | PC.NURSE ---
Pt is A and O x 4, VSS. He has ambulated to BR with SBA x 1 and FWW but prefers urinal after dinner. Px is 4-7/10 and pt can only lift L leg 1/2 off mattress. Good CMS and able to wiggle all toes. He has worn his knee brace 50% of the time and when he was working with PT. SCD on ZR leg is on. Pt is voiding qs clear yellow and has + BTs.
[2019-08-25] VITALS (7 sets, daily range): BP systolic 112–139; BP diastolic 61–80; PULSE 61–67; RESP 16–22; TEMP 36.3–36.9; O2SAT 98–99
[2019-08-25] MEDS: OXYCODONE/ACETAMINOPHEN 5/325 TABLET 2 TAB PO ×2 (00:35→17:58)
--- NOTE | 2019-08-25 02:07 | PC.NURSE ---
Pt has pain level 6/10 this night. Medicated w/ 2 percocet. Dressing is clean/dry and intact. Pt refuses to use Incentive spirometer, when trying to educate him on the use and benefits, he cut me off and stated I am going to throw the fucking thing away. Pt has one SCD on right leg applied. Pt's CMS is positive. Pt was educated about coughing and deep breathing. Call light is within reach.
[2019-08-25] MEDS: IBUPROFEN 400 MG TABLET 800 MG PO (03:50)
[2019-08-25] MEDS: VANCOMYCIN 1,250 MG in SODIUM CHLORIDE 0.9% 250 ML IV ×3 (03:51→21:10)
[2019-08-25] MEDS: OXYCODONE IR 10 MG TABLET PO ×4 (04:40→23:53)
[2019-08-25] MEDS: LACTATED RINGERS 1,000 ML 75 ML IV (06:38)
[2019-08-25] MEDS: ATENOLOL 25 MG TABLET PO (08:22)
[2019-08-25] MEDS: ASPIRIN EC 81 MG TABLET PO ×2 (08:22→21:11)
[2019-08-25] MEDS: DOCUSATE 100 MG CAPSULE PO ×2 (08:22→21:12)
--- NOTE | 2019-08-25 10:22 | PT.IPTN ---
Current Diagnoses Infection and inflammatory reaction due to other internal orthopedic prosthetic devices, implants and grafts, initial encounter (08/22/19) Presence of left artificial knee joint (08/22/19) Presence of unspecified artificial knee joint (08/22/19) Surgery Performed Operation Date: 08/22/19 14:45 Actual Procedures p Removal of knee prosthesis, placement of antibiotic spacer(Left) - Ross Mejia MD Physical Therapy Treatment Note M2 PT-IP Current Condition Start: 08/23/19 12:19 Freq: NEEDED Status: Active Protocol: Document 08/23/19 12:19 NFW (Rec: 08/23/19 12:58 NFW [id number]) Physical Therapy Current Condition Current Condition Evaluation Date 08/23/19 Treatment Diagnosis Septic left knee, 08/22/19 had removal of hardware from TKA Precautions Brace Knee Immobilizer - worn at all times Other Precautions Non Weight Bearing LLE Weight Bearing Status Weight Bearing Status Non-Weight Bearing M3 PT-IP Subjective Start: 08/23/19 12:19 Freq: NEEDED Status: Active Protocol: Document 08/25/19 10:22 AB (Rec: 08/25/19 11:45 AB [email or web address]) Subjective Physical Therapy Visit Type Type Treatment Note Visit Start Time 10:22 Visit Stop Time 10:53 Total Visit Minutes 31 Number of ASSEMBLER SHOW MOTOR Visits 0 Physical Therapy Visit Comments Patient Comments pt requesting to use the toilet Therapy Pain Assessment Pain When Pain Assessed During Mobility Location left knee Intensity 6 Scale Used Numeric (1 - 10) Pain Behaviors Guarding,Holding Area,Wincing M4 PT-IP Mobility and Gait Start: 08/23/19 12:19 Freq: NEEDED Status: Active Protocol: Document 08/25/19 10:22 AB (Rec: 08/25/19 11:45 AB [id number]) PT-Bed Mobility Assessment Supine to Sit Supine to Sit Moderate Assistance,1 Person Assistance Sit to Supine Sit to Supine Moderate Assistance,1 Person Assistance PT-Transfer Assessment Sit to and From Stand Sit to and from Stand Contact Guard Assistance Equipment Transfer Assistive Device Gait Belt,Front Wheeled Walker Orthotic/Prosthetic Devices or Brace: No Transfers Transfer Destination Toilet Transfer Technique pt ambulated using FWW Transfer Ability Level of Assist Contact Guard Assistance,1 Person Assistance,Use of Upper Extremities Comments Mobility Comments pt requesting to use the toilet. assisted with knee immobilizer adjustment. pt completed supine to sit with HOB elevated. pt used leg clinical cytopathologist but stated that it is causing him more pain and does not want to use it to get back to bed. pt required assist to move LLE to EOB. pt completed sit to stand CGA and ambulated into the toilet using FWW CGA. pt was able to maintain standing using FWW for support SBA while toileting. pt ambulated a few more time in the room and requested to go back to bed afterwards. completed sit to supine mod A to elevate LLE. pt used RLE to assist LLE. positioned pt in bed. call light and table placed within reach. Gait Assessment Gait Gait Assistance Required: Standby Assistance,Contact Guard Assist Distance (Feet) 30 Able to Maintain Weight Bearing Status Yes During Gait Assistive Devices Assistive Device Gait Belt,Front Wheeled Walker Orthotic/Prosthetic Devices or Brace: Yes Factors Limiting Gait Function Factors Limiting Gait Function Decreased Activity Tolerance, Decreased Strength,Limited Range of Motion,Pain,Poor Balance M5 PT-IP Objective Assessments Start: 08/23/19 12:19 Freq: NEEDED Status: Active Protocol: Document 08/23/19 12:19 NFW (Rec: 08/23/19 12:58 NFW [id number]) Orientation Orientation/Cognition Level of Alertness Alert Orientation Name,Birthday,Place,Situation Language Function Ability No Deficits Noted Safety Awareness Decreased Safety Awareness Memory Description No Deficits Noted Comments Patient cooperative and initially did not want to participate in any treatment. He performed well but does have fear of increase pain into LLE. Gross Range of Motion Upper Extremity ROM Assessment Within Functional Limits Lower Extremity ROM Impairments ROM LLE not tested, functional ROM right LE. Strength Upper Extremity Strength Assessment Within Functional Limits Lower Extremity Strength Assessment Left Impaired Comments Strength Comments Weak quad set LLE. Apprehensive about performing SLR and did not attempt. Muscle Tone Muscle Tone WNL No M6 PT-IP Treatment Start: 08/23/19 12:19 Freq: NEEDED Status: Active Protocol: Document 08/25/19 10:22 AB (Rec: 08/25/19 11:45 AB [email or web address]) Physical Therapy Treatment Education Education Provided Precautions,Weight Bearing Status,Safety M7 PT-IP Assessment and Plan Start: 08/23/19 12:19 Freq: NEEDED Status: Active Protocol: Document 08/25/19 10:22 AB (Rec: 08/25/19 11:45 AB [id number]) PT Summary Assessment and Plan Potential Rehabilitation Potential Good Summary Impairments Pain,ROM,Strength,Balance, Coordination,Sensation,Tone, Cognition,Bed Mobility, Transfers,Gait,Activity Tolerance Progress Towards Goals Slow Progress due to Pain Assessment Summary pt progressing slowly with PT and requires SBA to CGA with transfers and ambulation but requires mod A for bed mobility. d/c plan depending on progress but may require SNF rehab to improve strength and independence. Goals Bed Mobility Goal Independent Transfer Goal Independent,Front Wheeled Walker Gait Goal Independent,Front Wheel Walker Gait Distance 200 Days to Meet Goals 3 Frequency of Treatment Frequency Of Treatment Once a Day Treatment Plan Physical Therapy Treatment Plan Bed Mobility Training,Transfer Training,Gait Training, Therapeutic Exercise,Balance Retraining,Post Op Education, Discharge Planning, Coordination Retraining Other Recommendations and Next Treatment transfers, ambulation Focus Recommendations To Nursing Amount of Assist Needed 1 Person Assist Discharge Recommendations PT Discharge Recommendations Home with Assistance,SNF Rehab
--- NOTE | 2019-08-25 13:06 | PM.PNPO.1 ---
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 His pain is well controlled today. He does have a PICC line and receiving ceftriaxone 2 g q.d.. Final cultures are staph aureus. Patient lives with his father who is 83 years old and not able to really help him much. Patient is interested in considering SNF for recovery. Exam Vital Signs (past 8 hours): - 08/25/19 08:50 08/25/19 11:06 Temperature 97.7 F Pulse Rate 63 64 Respiratory Rate 22 17 Blood Pressure 129/80 125/72 Pulse Oximetry 98 98 Oxygen Delivery Method Room Air Oxygen Flow Rate 0 Narrative Exam Narrative: Patient sitting in bed in NAD. He is alert and oriented X3. Hemovac in place. Dressing CDI. Objective Labs Result Diagrams: 08/23/19 06:10 08/24/19 14:22 Labs: Laboratory Results - last 24 hr 08/24/19 08/24/19 14:22 19:05 Sodium 139 Potassium 4.5 Chloride 102 Carbon Dioxide 29 BUN 14 Creatinine 0.80 Estimated GFR > 60.0 BUN/Creatinine Ratio 17.5 Glucose 101 Calcium 8.8 Vancomycin Trough 8.2 L Assessment & Plan Post-op Postoperative Procedures: Procedures Operation Date: 08/22/19 14:45 Actual Procedures Side Surgeon p Removal of knee prosthesis, placement of antibiotic spacer Left Ross Mejia MD Continue NWB on left leg with immobilizer. Patient grew beta hemolytic strep from aspirate in the office pre-operatively. ID recommend ceftriaxone based on aspirate. Final cultures in the hospital grew staph aureus. Discussed with pharmacy today based on today's final cultures that IV Ceftriaxone 2 G daily remains the best option for antibiotic coverage. Patient has been slow to mobilize. He will most likely require SNF for continued care after surgery. Quality VTE Deep Vein Thrombosis/Pulmonary Embolism Present on Admission: No
[2019-08-25] MEDS: ACETAMINOPHEN 325 MG TABLET 975 MG PO ×2 (14:19→21:11)
[2019-08-25] MEDS: CEFTRIAXONE 2 GM/50 ML FROZ.PIGGY IV (17:52)
[2019-08-25 20:57] LABS: Vancomycin Trough 15.8 ug/mL (10-20)
[2019-08-25] MEDS: VANCOMYCIN TROUGH 1 REQUEST MISC (21:10)
--- NOTE | 2019-08-26 00:40 | PC.NURSE ---
FLIGHT TEST DATA ACQUISITION TECHNICIAN note: Patient was upset that I needed to change the soiled draw sheet under his left leg. Was not following directions when asked to roll and rolled his eyes multiple eyes. Was upset that it needed to be done. Smoothed out draw sheet to make patient comfortable, and when there were wrinkles in draw sheet he said just leave it. There's a big bunched up part that you did. I emptied his urinal, and put it on the table. Demanded it be placed in a different location and sighed heavily when placing it there. Alerted RN about his behavior. Call light within reach and told patient to call if he needed anything.
[2019-08-26] MEDS: VANCOMYCIN 1,250 MG in SODIUM CHLORIDE 0.9% 250 ML IV (04:09)
[2019-08-26 04:11] VITALS: BP 139/75; PULSE 71; RESP 16; TEMP 36.9; O2SAT 96
[2019-08-26] MEDS: IBUPROFEN 400 MG TABLET 800 MG PO ×3 (04:20→19:10)
[2019-08-26] MEDS: OXYCODONE/ACETAMINOPHEN 5/325 TABLET 2 TAB PO (04:20)
[2019-08-26] MEDS: ASPIRIN EC 81 MG TABLET PO ×2 (08:21→20:59)
[2019-08-26] MEDS: ATENOLOL 25 MG TABLET PO (08:21)
[2019-08-26 08:25] VITALS: BP 135/71; PULSE 67; RESP 20; TEMP 36.4; O2SAT 99
[2019-08-26 11:50] VITALS: BP 137/71; PULSE 70; RESP 18; TEMP 36.6; O2SAT 100
--- NOTE | 2019-08-26 11:51 | PT.IPTN ---
Current Diagnoses Infection and inflammatory reaction due to other internal orthopedic prosthetic devices, implants and grafts, initial encounter (08/22/19) Presence of left artificial knee joint (08/22/19) Presence of unspecified artificial knee joint (08/22/19) Surgery Performed Operation Date: 08/22/19 14:45 Actual Procedures p Removal of knee prosthesis, placement of antibiotic spacer(Left) - Ross Mejia MD Physical Therapy Treatment Note M2 PT-IP Current Condition Start: 08/23/19 12:19 Freq: NEEDED Status: Active Protocol: Document 08/23/19 12:19 NFW (Rec: 08/23/19 12:58 NFW [id number]) Physical Therapy Current Condition Current Condition Evaluation Date 08/23/19 Treatment Diagnosis Septic left knee, 08/22/19 had removal of hardware from TKA Precautions Brace Knee Immobilizer - worn at all times Other Precautions Non Weight Bearing LLE Weight Bearing Status Weight Bearing Status Non-Weight Bearing M3 PT-IP Subjective Start: 08/23/19 12:19 Freq: NEEDED Status: Active Protocol: Document 08/26/19 11:49 CLB (Rec: 08/26/19 11:51 CLB [id number]) Subjective Physical Therapy Visit Type Type Patient Refusal Notes Pt refused stating he has been up doing a lot today already. Pt was observed in chance in WC , pt stated KYLEE Abreu provided WC so he could get out of the room. Pt states he is more comfortable in WC then in recliner.
--- NOTE | 2019-08-26 12:01 | CM.DPC ---
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 Per PT/OT, recommending SNF rehab for strengthening before safe return home. SW met bedside with pt and his elderly father and explained role and pt confirms that he is now agreeable to SNF before safe return home when stable and pt's preference remains SNF in [facility]. SW provided him with the SNF Choice List and pt states he would be agreeable to either [facility] or [facility] but his first preference would maybe be [facility] just because his father had been there to visit friends before. SW faxed clinicals to both [facility] and [facility] and both confirm that they can accept pt under his Medicare when stable for discharge. PASRR completed in anticipation of SNF at d/c. Per previous [facility] note from [place] [facility] Enrique [phone] and Tatyana [place] P# [phone] aware of need for SNF at d/c and referrals by the [place] clinic staff he could go home after the 20 days w/Home infusion covered by his [facility] coverage which Iva Hernandez has initiated already. Plan: SW to follow for SNF at d/c for rehab and IV-Abx with both [facility] and [facility] having accepted the pt when stable for d/c. SW to keep [facility] updated on SN[facility] facility at d/c so that they can continue to work on home infusion set up once pt has used his 20 Medicare days. JEFF Harris
--- NOTE | 2019-08-26 12:08 | PM.PNPO.1 ---
Subjective Subjective Date Patient Seen: 08/26/19 Time Patient Seen: 12:08 Interval history: POD 4 following left septic total knee arthroplasty I and D with hardware removal and antibiotic spacer. His pain is well controlled today. He does have a PICC line and receiving ceftriaxone 2 g q.d.. Final cultures are staph aureus. Patient lives with his father who is 83 years old and not able to really help him much. Patient is interested in considering SNF for recovery. Sounds like foot snf discharge details are being finalized. Anticipate discharge in the next day or so. Patient at bedside in wheelchair with knee immobilizer in place. Exam Vital Signs (past 8 hours): - 08/26/19 04:11 08/26/19 08:25 Temperature 98.5 F 97.6 F Pulse Rate 71 67 Respiratory Rate 16 20 Blood Pressure 139/75 135/71 Pulse Oximetry 96 99 Oxygen Delivery Method Room Air Oxygen Flow Rate 0 Narrative Exam Narrative: Alert oriented male no acute distress sitting at his bedside in his wheelchair Normocephalic atraumatic Respirations unlabored on room air Left lower extremity knee immobilizer and dressing in place. Patient demonstrates active dorsiflexion plantar flexion of the foot. Calf is soft. Stable examination Objective Labs Result Diagrams: 08/23/19 06:10 08/24/19 14:22 Labs: Laboratory Results - last 24 hr 08/25/19 20:30 Vancomycin Trough 15.8 Assessment & Plan Post-op Postoperative Procedures: Procedures Operation Date: 08/22/19 14:45 Actual Procedures Side Surgeon p Removal of knee prosthesis, placement of antibiotic spacer Left Ross Mejia MD Continue NWB on left leg with immobilizer. Patient grew beta hemolytic strep from aspirate in the office pre-operatively. ID recommend ceftriaxone based on aspirate. Final cultures in the hospital grew staph aureus. Discussed with pharmacy today based on today's final cultures that IV Ceftriaxone 2 G daily remains the best option for antibiotic coverage. Vancomycin discontinued. Anticipate ceftriaxone 2 g daily for 6 weeks. A weight SNF placement Quality VTE Deep Vein Thrombosis/Pulmonary Embolism Present on Admission: No
[2019-08-26] MEDS: OXYCODONE IR 10 MG TABLET PO ×2 (12:11→19:10)
[2019-08-26 16:00] VITALS: BP 126/77; PULSE 63; RESP 20; TEMP 36.7; O2SAT 100
[2019-08-26] MEDS: ACETAMINOPHEN 325 MG TABLET 975 MG PO ×2 (16:21→20:59)
--- NOTE | 2019-08-26 16:26 | PC.NURSE ---
EMIGDIO dressing changed at approx 1530 due to compromised seal. Wound is C/D. Celio in place and edges well approximated.
[2019-08-26] MEDS: CEFTRIAXONE 2 GM/50 ML FROZ.PIGGY IV (17:33)
[2019-08-26 19:46] VITALS: BP 127/70; PULSE 71; RESP 18; TEMP 36.9
--- NOTE | 2019-08-26 19:51 | PC.NURSE ---
Per MD Eng, okay to take off disfunctional EMIGDIO drain and replace with aqua cell dressing.
[2019-08-27 00:10] VITALS: BP 131/76; PULSE 68; RESP 16; TEMP 37; O2SAT 93
[2019-08-27] MEDS: IBUPROFEN 400 MG TABLET 800 MG PO ×2 (05:44→11:43)
[2019-08-27] MEDS: OXYCODONE IR 10 MG TABLET PO ×3 (05:44→15:52)
[2019-08-27 06:15] VITALS: BP 133/76; PULSE 68; RESP 16; TEMP 36.8; O2SAT 96
[2019-08-27 08:00] VITALS: BP 137/84; PULSE 61; RESP 16; TEMP 36.7
[2019-08-27 08:42] VITALS: PULSE 61; TEMP 36.7
[2019-08-27 08:49] LABS: Add Manual Diff / Slide Review NO; Basophils Absolute Auto 100 /uL (0-100); Basophils Percent Auto 1.3 % (0-2); Eosinophils Absolute Auto 600 /uL (0-450); Eosinophils Percent Auto 8.1 % (2-4); Hematocrit 29.3 % (41-53); Hemoglobin 9.6 g/dL (13.5-17.5); Lymphocytes Absolute Auto 2200 /uL (1100-4500); Lymphocytes Percent Auto 30.3 % (25-40); Mean Corpuscular HGB Conc 32.7 % (30-36); Mean Corpuscular Hemoglobin 30.5 PG (26-34); Mean Corpuscular Volume 93.2 fL (80-100); Monocytes Absolute Auto 400 /uL (0-900); Monocytes Percent Auto 5.5 % (3-14); Neutrophils Absolute Auto 4000 /uL (1500-7000); Neutrophils Percent Auto 54.8 % (50-75); Platelet Count 411 X10^3/uL (150-400); Red Blood Cell Count 3.15 X10^6/uL (4.5-5.9); Red Cell Distribution Width 14.6 % (11.6-14.8); White Blood Cell Count 7.4 X10^3/uL (4.5-11.0)
[2019-08-27] MEDS: ASPIRIN EC 81 MG TABLET PO (08:51)
[2019-08-27] MEDS: ATENOLOL 25 MG TABLET PO (08:51)
--- NOTE | 2019-08-27 08:51 | CM.DPC ---
DCP Continued: CM/RN met with patient at bedside, patient stated he would like to go home today. Patients preferred SNF location is [facility]. CM Called [facility] [phone] to update them on the patients progress and potential dc today. DC plan is for patient to DC to [facility] for 20 days rehab and IV-abx. CM to keep [place] update about SNF facility once dc orders are placed so that [place] can continue to work on home infusion set up once patients 20 days with medicare are used up. [place] [facility] En[facility] [phone] and Tatyana [phone]. Vonnie Escobar RN
[2019-08-27 08:59] LABS: C-Reactive Protein Quant 2.3 mg/dL (<1.0)
[2019-08-27 09:02] LABS: Erythrocyte Sedimentation Rate 90 MM/HR (0-15)
--- NOTE | 2019-08-27 09:21 | PT.IPTN ---
Current Diagnoses Infection and inflammatory reaction due to other internal orthopedic prosthetic devices, implants and grafts, initial encounter (08/22/19) Presence of left artificial knee joint (08/22/19) Presence of unspecified artificial knee joint (08/22/19) Surgery Performed Operation Date: 08/22/19 14:45 Actual Procedures p Removal of knee prosthesis, placement of antibiotic spacer(Left) - Ross Mejia MD Physical Therapy Treatment Note M2 PT-IP Current Condition Start: 08/23/19 12:19 Freq: NEEDED Status: Active Protocol: Document 08/23/19 12:19 NFW (Rec: 08/23/19 12:58 NFW [id number]) Physical Therapy Current Condition Current Condition Evaluation Date 08/23/19 Treatment Diagnosis Septic left knee, 08/22/19 had removal of hardware from TKA Precautions Brace Knee Immobilizer - worn at all times Other Precautions Non Weight Bearing LLE Weight Bearing Status Weight Bearing Status Non-Weight Bearing M3 PT-IP Subjective Start: 08/23/19 12:19 Freq: NEEDED Status: Active Protocol: Document 08/27/19 09:21 CLB (Rec: 08/27/19 11:50 CLB [id number]) Subjective Physical Therapy Visit Type Type Patient Refusal Notes Pt refused stating he is able to transfer and get his own clothes on. He stated he would be discharging today but agreed to participate with therapy if he doesn't discharge later today. M4 PT-IP Mobility and Gait Start: 08/23/19 12:19 Freq: NEEDED Status: Active Protocol: Document 08/25/19 10:22 AB (Rec: 08/25/19 11:45 AB [id number]) PT-Bed Mobility Assessment Supine to Sit Supine to Sit Moderate Assistance,1 Person Assistance Sit to Supine Sit to Supine Moderate Assistance,1 Person Assistance PT-Transfer Assessment Sit to and From Stand Sit to and from Stand Contact Guard Assistance Equipment Transfer Assistive Device Gait Belt,Front Wheeled Walker Orthotic/Prosthetic Devices or Brace: No Transfers Transfer Destination Toilet Transfer Technique pt ambulated using FWW Transfer Ability Level of Assist Contact Guard Assistance,1 Person Assistance,Use of Upper Extremities Comments Mobility Comments pt requesting to use the toilet. assisted with knee immobilizer adjustment. pt completed supine to sit with HOB elevated. pt used leg shear operator automatic but stated that it is causing him more pain and does not want to use it to get back to bed. pt required assist to move LLE to EOB. pt completed sit to stand CGA and ambulated into the toilet using FWW CGA. pt was able to maintain standing using FWW for support SBA while toileting. pt ambulated a few more time in the room and requested to go back to bed afterwards. completed sit to supine mod A to elevate LLE. pt used RLE to assist LLE. positioned pt in bed. call light and table placed within reach. Gait Assessment Gait Gait Assistance Required: Standby Assistance,Contact Guard Assist Distance (Feet) 30 Able to Maintain Weight Bearing Status Yes During Gait Assistive Devices Assistive Device Gait Belt,Front Wheeled Walker Orthotic/Prosthetic Devices or Brace: Yes Factors Limiting Gait Function Factors Limiting Gait Function Decreased Activity Tolerance, Decreased Strength,Limited Range of Motion,Pain,Poor Balance M5 PT-IP Objective Assessments Start: 08/23/19 12:19 Freq: NEEDED Status: Active Protocol: Document 08/23/19 12:19 NFW (Rec: 08/23/19 12:58 NFW [id number]) Orientation Orientation/Cognition Level of Alertness Alert Orientation Name,Birthday,Place,Situation Language Function Ability No Deficits Noted Safety Awareness Decreased Safety Awareness Memory Description No Deficits Noted Comments Patient cooperative and initially did not want to participate in any treatment. He performed well but does have fear of increase pain into LLE. Gross Range of Motion Upper Extremity ROM Assessment Within Functional Limits Lower Extremity ROM Impairments ROM LLE not tested, functional ROM right LE. Strength Upper Extremity Strength Assessment Within Functional Limits Lower Extremity Strength Assessment Left Impaired Comments Strength Comments Weak quad set LLE. Apprehensive about performing SLR and did not attempt. Muscle Tone Muscle Tone WNL No M6 PT-IP Treatment Start: 08/23/19 12:19 Freq: NEEDED Status: Active Protocol: Document 08/25/19 10:22 AB (Rec: 08/25/19 11:45 AB [id number]) Physical Therapy Treatment Education Education Provided Precautions,Weight Bearing Status,Safety M7 PT-IP Assessment and Plan Start: 08/23/19 12:19 Freq: NEEDED Status: Active Protocol: Document 08/25/19 10:22 AB (Rec: 08/25/19 11:45 AB [id number]) PT Summary Assessment and Plan Potential Rehabilitation Potential Good Summary Impairments Pain,ROM,Strength,Balance, Coordination,Sensation,Tone, Cognition,Bed Mobility, Transfers,Gait,Activity Tolerance Progress Towards Goals Slow Progress due to Pain Assessment Summary pt progressing slowly with PT and requires SBA to CGA with transfers and ambulation but requires mod A for bed mobility. d/c plan depending on progress but may require SNF rehab to improve strength and independence. Goals Bed Mobility Goal Independent Transfer Goal Independent,Front Wheeled Walker Gait Goal Independent,Front Wheel Walker Gait Distance 200 Days to Meet Goals 3 Frequency of Treatment Frequency Of Treatment Once a Day Treatment Plan Physical Therapy Treatment Plan Bed Mobility Training,Transfer Training,Gait Training, Therapeutic Exercise,Balance Retraining,Post Op Education, Discharge Planning, Coordination Retraining Other Recommendations and Next Treatment transfers, ambulation Focus Recommendations To Nursing Amount of Assist Needed 1 Person Assist Discharge Recommendations PT Discharge Recommendations Home with Assistance,SNF Rehab
[2019-08-27 12:00] VITALS: BP 118/76; PULSE 60; RESP 16; TEMP 36.7; O2SAT 99
--- NOTE | 2019-08-27 14:51 | CM.DPC ---
DCP Continued: Spoke with [facility] and they are open to accept patient today. Ortho is putting in DC orders so patient can go to [facility]. Left a detailed message for [facility] with [facility] at [phone] letting them know that the patient is going to d/c to [facility] this afternoon. CM asked Gilberto to send clinicals and set up transportation for patient to [facility]. Vonnie Escobar RN
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
--- NOTE | 2019-08-27 15:19 | CM.DPC ---
DCP Cont: Called [facility] and spoke to Christina who agreed to have [facility] [facility] pickling solution maker the patient at 1600. Patient and patient's RN both notified. Whiteboard updated. Faxed PASRR, signed meds and discharge summary to [facility] at fax # [phone]. Fax confirmation scanned in. Misty Ewing, Care Pig Farm Manager
--- NOTE | 2019-08-27 15:28 | PC.NURSE ---
Day Shift Note PICC line dressing change completed. Aquacel dressing changed to left knee per Sammy MOSQUEDA without issue. Pt replaced own LAURA wrap and knee immobilizer. Updated on plan for d/c at 1600.
--- NOTE | 2019-08-27 16:14 | PC.NURSE ---
Addendum entered by Yessenia Choudhary R.N. 08/27/19 18:45: This RN unable to find Discharge Packet, notified Vonnie ([facility]) and she prepped Discharge Packet, and Discharge instructions and summary was printed, including list of meds, last taken and next due. This RN later found Discharge Packet outside of room 213s slot, next to [facility] computer face down. Notified Vonnie and Echo (Coordinator). Multiple attempts by DIOMEDES Shankar made to [facility] of [facility] with no response back. Original Note: Mechelle shift / Discharge note: Patient transferred to [facility]. in stable condition. PICC line to RASHAWN and Aqaucel dressing changed. Patient to continue to IV antibiotic therapy outpatient. Discussed importance of NWB to LLE. Patient with knee brace to LLE. Report given to receiving nurse at receiving facility. Patient trasferred via WC in private vehicle.
== END 2019-08-27 16:17 | DRG 468 ==
PROVIDERS: Orthopaedic Surgery Foot and Ankle Surgery; Physician Assistant Medical; Admitting Provider Orthopaedic Surgery; PCP Hospitalist; Visit Provider Orthopaedic Surgery
PROC: 0SPD0JZ Removal of Synthetic Substitute from Left Knee Joint, Open Approach (ICD-10-PCS; principal; 2019-08-22 14:45)
DX: T84.54XA Infection and inflammatory reaction due to internal left knee prosthesis, initial encounter (principal); T84.033A Mechanical loosening of internal left knee prosthetic joint, initial encounter; I10 Essential (primary) hypertension; B95.61 Methicillin susceptible Staphylococcus aureus infection as the cause of diseases classified elsewhere; R33.9 Retention of urine, unspecified
CPT/HCPCS: 36415; 36569; 73560; 80048; 80202; 85025; 85027; 85651; 86140; 87070; 87075; 87077; 87147; 87186; 87205; 97110; 97116; 97162; 97530; J0690; J0696; J1100; J1170; J2250; J2274; J2405; J2704; J3010

== ENCOUNTER 2019-12-12 11:08 | Inpatient (IN) | payer OTHER, SELFPAY ==
[2019-08-22 18:24] VITALS: BMI 19.1
[2019-12-12] VITALS (15 sets, daily range): BP systolic 114–143; BP diastolic 64–87; PULSE 82–101; RESP 10–18; TEMP 35.9–36.8; O2SAT 94–100; BMI 19.7
--- NOTE | 2019-12-12 | DI.RAD.S_ITS ---
PROCEDURE: XR KNEE LT 1TO2V INDICATIONS: POST OP TECHNIQUE: 3 view(s) of the knee acquired. COMPARISON: [facility], CR, XR KNEE ARTHRITIC SERIES LT, 11/27/2019, 10:16. [facility], SYDNI, XR KNEE LT 1TO2V, 08/22/2019, 17:25. FINDINGS: Bones: Patient is status post knee joint arthroplasty. Periprosthetic lucency adjacent to the tip of the tibial stem component is probably postsurgical Hardware components are in expected alignment. Visualized bony structures are intact. Soft tissues: Overlying postoperative changes are noted. IMPRESSION: Expected postoperative alignment Dictated by: Karel Pratt M.D. on 12/13/2019 at 11:52 Approved by: Karel Pratt M.D. on 12/13/2019 at 11:53
[2019-12-12] MEDS: LACTATED RINGERS 1,000 ML 42 ML IV ×2 (11:45→13:26)
[2019-12-12] MEDS: PREGABALIN 75 MG CAPSULE PO (11:49)
[2019-12-12] MEDS: ACETAMINOPHEN 325 MG TABLET 975 MG PO (11:49)
[2019-12-12] MEDS: CELECOXIB 200 MG CAPSULE PO (11:49)
[2019-12-12] MEDS: MIDAZOLAM 2 MG/2 ML VIAL IV (12:30)
[2019-12-12] MEDS: fentaNYL 100 MCG/2 ML INJ 50 MCG IV ×2 (12:30→12:33)
--- NOTE | 2019-12-12 12:49 | SUR.PREOP ---
Block start time [1230] . Monitoring initiated and maintained throughout procedure. Oxygen and medications given per anesthesiologist instructions. Patient remained stable throughout procedure, no adverse reactions noted. Block end time [1237].Pt left for OR with Erica in stable condition.
--- NOTE | 2019-12-12 13:13 | SUR.OPER ---
Supine on padded OR bed. Pillow under head, arms secured on padded armboards <90 degree abduction. Safety belt across torso. Non-operative leg secured with tape over blanket over lower leg. Bar positioner for operative leg. Foam padded brace at thigh of operative leg.
[2019-12-12] MEDS: ROPIVACAINE 0.5% PF 5 MG/ML 20ML VIAL 60 ML INJ (13:26)
[2019-12-12] MEDS: MORPHINE 4 MG/ML INJ INJ (13:27)
[2019-12-12] MEDS: KETOROLAC 30 MG/ML VIAL IV (13:27)
[2019-12-12] MEDS: CEFAZOLIN 2 GM/100 ML FROZ.PIGGY IV ×2 (13:37→22:47)
[2019-12-12] MEDS: TOBRAMYCIN 1.2 GM VIAL INTRA-ARTI ×2 (14:31→14:32)
[2019-12-12] MEDS: VANCOMYCIN 1,000 MG VIAL 1000 MG TOP (14:33)
[2019-12-12] MEDS: SODIUM CHLORIDE 0.9% 1,000 ML 84 ML IV (16:04)
--- NOTE | 2019-12-12 16:40 | PM.OP.1 ---
Operative Date/Time/Diagnoses Date of procedure: 12/12/19 Time of procedure: 16:40 Pre-op diagnosis: PJI left TKA with abx spacer Post-op diagnosis: same Procedure & Clinicians Procedure: revision L TKA Same procedure as scheduled: Yes Indications: left knee PJI s/p expalnt and with abx spacer. Has now completed 3 months abx therapy. Surgeon: Milton Rutherford Motor Vehicle Emissions Inspector: Sammy Schultz Anesthesia Type: General Operative Notes Findings: No gross infection. Extremely stiff extensor mechanism. Closure Type: non-primary Specimen(s): other (3x tissue culutres) Prosthetic devices, grafts, tissues, transplants, or devices: Escobar and Nephew legion Oxinium size 7 left femoral component constrained Escobar and Nephew 6 mm offset biological photographer Escobar and Nephew 16 mm x 160 mm Press-Fit stem Escobar and Nephew 5 mm size 7 distal augment Escobar and Nephew 10 mm size 7 distal augments Escobar and Nephew size 5 left tibial base plate Escobar and Nephew 2 mm legion offset biological photographer Escobar and Nephew 16 mm x 160 mm Press-Fit stem Escobar and Nephew 32 mm oval patella Escobar and Nephew size 5-611 mm constrained polyethylene insert Estimated Blood Loss (mL): 200 Blood products transfused: none Tourniquet time (min): 90 Procedure in detail: The patient was met in the preoperative holding area with signs of surgery were marked by . all last minute questions were answered. Patient was then brought back into the operating room and placed on the operating room table. He was induced under general anesthesia. The left lower extremity was then prepped and draped in normal sterile fashion. A time-out was performed verifying the site and side of surgery as well as the name of the patient. The old surgical scar was incised with a 10. Blade and medial lateral flaps were elevated. A medial parapatellar approach was performed and extensive synovectomy was performed at this point to remove scar tissue. Synovial tissue culture was sent. The antibiotic spacer was removed. The tibial canal wasn't instrumented we began hand reaming up to a size 16. Canal tissue culture was sent for culture. The revision tibial cutting block was then placed over the Reamer shaft and a 1-2 mm freshen up cut was performed on the tibia. A size 5 tibial base plate trial was selected a 2 mm offset biological photographer was used to get appropriate tibial base plate positioning. This was then pinned in place and a Reamer was used to accommodate the offset biological photographer. We then turned our attention to the femoral side the femoral canal was instrumented up to a size 16 stem the distal femoral cutting block was then placed over the Reamer shaft. And a freshen up cut was performed on the medial side approximately 1 mm in depth. The lateral side also had a 1 mm freshening cut at the 5 mm augment depth slot. We then sized the femur to a size 7 and appropriate position was achieved using a 6 mm offset biological photographer. The femoral component was lateralized and posterior eyes. This was then pinned in her depression of posterior cut was made as well as our anterior cut and anterior and posterior chamber cuts. We then reamed and punched the femoral box. At this point measuring from the medial epicondyle is approximately 20 to 22 mm to the joint line at this point it was decided we'd augment 5 mm medially and 10 mm distally to more accurately recreate the joint line. This was then trialed and found to be stable in flexion and extension although in the flexion extensor mechanism was quite tight likely from prolonged immobilization with a static spacer. A 1-2 mm depth freshen up cut was performed of the patella and a 32 mm oval button was placed taking care to medialized the button. The components were then removed and the tibia and femur were copiously irrigated with pulse lavage. The final components were assembled on the back table matching our trial components. Cement contained tobramycin and gentamicin was used to coat the back of the tibial base plate as well as the tibial cut. This was then malleted into place and allowed to fully cure prior to moving on with the next step. A 2nd batch of cement was mixed again containing tobramycin and gentamicin. Cement was used to cut the back of the femoral component and the distal femoral cut anterior cut and anterior chamfer cuts. The femoral component was then placed and malleted into place a trial 11 mm poly was then placed the knee was brought into full extension excess cement was cleared. The patella was then cemented and clamped into place. Cement was allowed to fully cure before moving onto the next step. An 11 mm thick constrained liner was selected the trial was removed and the final poly was placed. This point a large lateral release was performed to help with patellar tracking. A Hemovac drain was placed. 1 g of vancomycin powder was then placed into the wound. 1. Vicryl using interrupted fashion to repair the medial parapatellar approach. Two 0 Vicryl was used in the subcutaneous tissue followed by janusz on the skin. Sterile dressings then placed and patient brought to PACU in stable condition. Complications: none Post-operative Condition: stable Disposition: PACU Plan for aftercare: Weight-bearing as tolerated left lower extremity. 24 hours of postop antibiotics. Drain can be pulled tomorrow unless putting out copious amounts of blood.
[2019-12-12] MEDS: hydrOXYzine 50 MG/ML INJ 25 MG IM (17:25)
[2019-12-12] MEDS: HYDROMORPHONE 2 MG INJ IV (17:25)
--- NOTE | 2019-12-12 18:21 | SUR.PHASEI ---
This nurse attempted three times to call report to inpatient unit. Pineapple juice given. Patient resting quietly and appears comfortable.
[2019-12-12] MEDS: LACTATED RINGERS 1,000 ML 125 ML IV (20:04)
[2019-12-12] MEDS: OXYCODONE IR 5 MG TABLET PO (20:06)
[2019-12-12] MEDS: ACETAMINOPHEN 325 MG TABLET 650 MG PO (20:06)
[2019-12-12] MEDS: ASPIRIN EC 81 MG TABLET PO (20:07)
[2019-12-12] MEDS: VANCOMYCIN 1,000 MG/200 ML PIGGYBACK 200 MG IV (20:07)
[2019-12-12 21:23] LABS: Add Manual Diff / Slide Review NO; Basophils Absolute Auto 0 /uL (0-100); Basophils Percent Auto 0.2 % (0-2); Eosinophils Absolute Auto 0 /uL (0-450); Eosinophils Percent Auto 0.1 % (2-4); Hematocrit 34.8 % (41-53); Hemoglobin 11.8 g/dL (13.5-17.5); Lymphocytes Absolute Auto 1000 /uL (1100-4500); Lymphocytes Percent Auto 8.2 % (25-40); Mean Corpuscular HGB Conc 33.9 % (30-36); Mean Corpuscular Hemoglobin 31.6 PG (26-34); Mean Corpuscular Volume 93.1 fL (80-100); Monocytes Absolute Auto 300 /uL (0-900); Monocytes Percent Auto 2.1 % (3-14); Neutrophils Absolute Auto 10900 /uL (1500-7000); Neutrophils Percent Auto 89.4 % (50-75); Platelet Count 177 X10^3/uL (150-400); Red Blood Cell Count 3.74 X10^6/uL (4.5-5.9); Red Cell Distribution Width 16.4 % (11.6-14.8); White Blood Cell Count 12.2 X10^3/uL (4.5-11.0)
[2019-12-13] MEDS: OXYCODONE IR 5 MG TABLET PO ×4 (00:16→14:00)
[2019-12-13 03:45] VITALS: BP 125/66; PULSE 85; RESP 20; TEMP 36.8; O2SAT 97
[2019-12-13 03:48] VITALS: BP 125/66; PULSE 85; RESP 20; TEMP 36.8; O2SAT 97
[2019-12-13] MEDS: LACTATED RINGERS 1,000 ML 125 ML IV (04:17)
[2019-12-13] MEDS: CEFAZOLIN 2 GM/100 ML FROZ.PIGGY IV ×2 (06:00→13:01)
[2019-12-13 06:08] LABS: Hematocrit 31.1 % (41-53); Hemoglobin 10.6 g/dL (13.5-17.5)
[2019-12-13 07:12] VITALS: BP 104/66; PULSE 77; RESP 18; TEMP 36.6; O2SAT 99
--- NOTE | 2019-12-13 07:43 | P.PN_ITS ---
Subjective Subjective Date Patient Seen: 12/13/19 Time Patient Seen: 07:43 Interval history: Pain currently mild. Pain overnight was moderate to severe. Denies fever chills. No nausea vomiting. Able ambulate with assistance and use a walker to restroom. Patient urinating well. Exam Vital Signs (past 8 hours): - 12/13/19 03:45 12/13/19 03:48 12/13/19 07:12 Temperature 98.3 F 98.3 F 97.9 F Pulse Rate 85 85 77 Respiratory Rate 20 20 18 Blood Pressure 125/66 125/66 104/66 Pulse Oximetry 97 97 99 Oxygen Delivery Method Room Air Oxygen Flow Rate 0 Narrative Exam Narrative: 64-year-old male resting comfortably in bed in no apparent distress. Kendy dressing is on and functioning. Dressing is clean, dry and intact. Sensation grossly intact to light touch distal left lower extremity. Motor functions intact distal left lower extremity. Left leg is warm and dry. Objective Labs Result Diagrams: 12/13/19 05:45 Labs: Laboratory Results - last 24 hr 12/12/19 12/13/19 21:15 05:45 WBC 12.2 H RBC 3.74 L Hgb 11.8 L 10.6 L Hct 34.8 L 31.1 L MCV 93.1 MCH 31.6 MCHC 33.9 RDW 16.4 H Plt Count 177 Neut % (Auto) 89.4 H Lymph % (Auto) 8.2 L Hand % (Auto) 2.1 L Eos % (Auto) 0.1 L Baso % (Auto) 0.2 Neut # (Auto) 76908 H Lymph # (Auto) 1000 L Hand # (Auto) 300 Eos # (Auto) 0 Baso # (Auto) 0 ORDERED: WOUND Cx and GS COMMENTS: Comment left knee femoral canal tissue; C&S, gram stain Procedure Result Verified Site Gram Stain Final 12/12/19 183 No Organism Seen No organisms seen White blood cells Occasional WBC seen Epithelial cells Occasional (0-1) Aerobic Culture for wounds Pending Anaerobic Culture Pending Assessment & Plan Post-op Postoperative Procedures: Procedures Operation Date: 12/12/19 13:00 Actual Procedures Side Surgeon p Removal of static antibiotic spacer and revision total knee arthroplasty Left Milton Rutherford MD Patient progressing as expected. Drainage 190 cc yesterday with 50 cc this a.m.. Mobilize with physical therapy. Possible discharge home today or tomorrow. Weightbearing as tolerated left lower extremities. 24 hours of postop antibiotics. Quality VTE Deep Vein Thrombosis/Pulmonary Embolism Present on Admission: No
[2019-12-13] MEDS: SODIUM CHLORIDE 0.9% FLUSH 10 ML IV (08:52)
[2019-12-13] MEDS: ACETAMINOPHEN 325 MG TABLET 650 MG PO (08:52)
[2019-12-13] MEDS: ASPIRIN EC 81 MG TABLET PO (08:52)
[2019-12-13] MEDS: OXYCODONE IR 10 MG TABLET PO (10:52)
[2019-12-13 11:02] VITALS: BP 138/75; PULSE 86; RESP 18; TEMP 36.9; O2SAT 98
--- NOTE | 2019-12-13 11:16 | PT.IIE ---
Current Diagnoses Infection and inflammatory reaction due to other internal joint prosthesis, sequela (12/12/19) Presence of left artificial knee joint (12/12/19) Surgery Performed Operation Date: 12/12/19 13:00 Actual Procedures p Removal of static antibiotic spacer and revision total knee arthroplasty(Left) - Milton Rutherford MD Surgical History (Last Updated 12/06/19 @ 16:23 by Elen Beth, RN) History of incision and drainage (Acute) History of total knee arthroplasty (Acute ~04/2018) Hx of bilateral inguinal hernia repair (Acute) Medical History (Last Updated 12/12/19 @ 12:04 by Elen Beth, RN) COPD (chronic obstructive pulmonary disease) (Acute) Current every day smoker (Acute) Fatty liver (Acute) Hearing impaired (Acute) Heat stroke (Acute) HTN (hypertension) (Acute) Infection of total left knee replacement (Acute) Kidney stone (Acute ~06/2019) Migraines (Acute) Neuropathy (Acute) PTSD (post-traumatic stress disorder) (Acute) Syncopal episodes (Acute ~06/2019) Physical Therapy Inpatient Evaluation/Re-Eval M1 PT/OT-IP Prior Functional Status Start: 12/13/19 08:49 Freq: NEEDED Status: Active Protocol: Document 12/13/19 10:49 AW (Rec: 12/13/19 11:16 AW [email or web address]) Medical Review Prior Functional Status Medical History Reviewed Yes Communication WNL Mobility and Gait Prior to surgery (I&D, hardware removal, antiobiotic spacer placement) in August, pt use a 3-point/hurrycane for most ambulation. He has been NWB LLE since August surgery, mobilizing with a manual wheelchair (self-propelled) and FWW. Activities of Daily Living and IADL's Independent but with increased time Prior Functional Level (Other details) Pt does not drive. He lives with his father who does all the driving. Social History Household Members family Living Arrangements Apartment/Condo Number of Floors (Floors) 3 or More Floors Number of Stairs To Enter/Railing? Elevator access to third floor apartment. 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 M2 PT-IP Current Condition Start: 12/13/19 08:49 Freq: NEEDED Status: Active Protocol: Document 12/13/19 10:49 AW (Rec: 12/13/19 11:16 AW [email or web address]) Physical Therapy Current Condition Current Condition Evaluation Date 12/13/19 Treatment Diagnosis s/p L TKA revision, impaired mobility Weight Bearing Status Weight Bearing Status Weight Bear as Tolerated M3 PT-IP Subjective Start: 12/13/19 08:49 Freq: NEEDED Status: Active Protocol: Document 12/13/19 10:49 AW (Rec: 12/13/19 11:16 AW [email or web address]) Subjective Physical Therapy Visit Type Type Initial Evaluation Visit Start Time 10:07 Visit Stop Time 10:42 Total Visit Minutes 35 Physical Therapy Visit Comments Patient Comments Pt would like to go for a walk Patient Goals To discharge back to his apartment and get some rest Therapy Pain Assessment Pain When Pain Assessed During Mobility Pain Present Pain Present Pain Reported Location left knee Intensity 7 Scale Used 4/10 at rest; 7/10 with mobility Pain Management Techniques Re-positioning,Timing of Activity with Medications M4 PT-IP Mobility and Gait Start: 12/13/19 08:49 Freq: NEEDED Status: Active Protocol: Document 12/13/19 10:49 AW (Rec: 12/13/19 11:16 AW [email or web address]) PT-Bed Mobility Assessment Scooting Scooting to Edge of Bed Independent Scooting Up and Down in Bed Independent PT-Transfer Assessment Sit to and From Stand Sit to and from Stand Standby Assistance,Use of Upper Extremities Equipment Transfer Assistive Device Gait Belt,Front Wheeled Walker Orthotic/Prosthetic Devices or Brace: No Transfers Transfer Destination Bed,Chair Transfer Ability Level of Assist Standby Assistance,Use of Upper Extremities Comments Mobility Comments Pt initiated supine to sit transfer and then requested assist to move his left leg out of the bed. He did not require any more than CGA. He was somewhat impulsive, attempting to stand with no AD nearby, requiring cues for safety. With FWW, he stood SBA and attempted equal weightbearing. After gait assessment, he returned to the room and transferred to the chair SBA. He then transferred from the chair to the toilet and back SBA and cues for LLE weightbearing. Pt was positioned in the chair with call light and all needs within reach. RN was notified that no chair alarm was armed. Gait Assessment Gait Gait Assistance Required: Standby Assistance,1 Person Assist Distance (Feet) 150 Able to Maintain Weight Bearing Status Yes During Gait Assistive Devices Assistive Device Gait Belt,Front Wheeled Walker Orthotic/Prosthetic Devices or Brace: No Gait Deviations General Gait Pattern Antalgic,Decreased Stride Length,Decreased Feet Clearance,Flexed Trunk,Step-to Gait,Wide Based Gait Factors Limiting Gait Function Factors Limiting Gait Function Decreased Strength,Limited Range of Motion,Pain,Poor Balance,Poor Safety Awareness Comments Gait Comments Pt ambulated in the halls using FWW SBA. Gait was characterized by RLE weightbearing on the lateral border of the foot, decreased LLE stance time, and step-to patterning. Pt was able to correct step-to pattern and focus on bilateral heelstrike but only for ~10 feet at a time before reverting to step- to pattern. Pt states he is more likely to use the 4WW at home. Will assess at next treatment. Stair Climbing Assessment Comments Stair Climbing Comments Pt has building elevator. No need to climb stairs at home. PT-Balance Assessment Sitting Balance and Reactions Dynamic Sitting Balance Ability Good Standing Balance and Reactions Static Standing Balance Ability Good Dynamic Standing Balance Ability Good Device Used FWW M5 PT-IP Objective Assessments Start: 12/13/19 08:49 Freq: NEEDED Status: Active Protocol: Document 12/13/19 10:49 AW (Rec: 12/13/19 11:16 [email or web address]) Orientation Orientation/Cognition Level of Alertness Alert Orientation Name,Day of Week,Place, Situation Language Function Ability No Deficits Noted,Hard of Hearing Safety Awareness Decreased Safety Awareness Memory Description No Deficits Noted Gross Range of Motion Upper Extremity ROM Assessment Within Functional Limits Lower Extremity ROM Assessment Left Impaired Impairments L knee 5-75 degrees Strength Upper Extremity Strength Assessment Within Functional Limits Lower Extremity Strength Assessment Left Impaired Comments Strength Comments Weak quad set LLE. Pt apprehensive Coordination Assessment Gross Coordination Gross Coordination WNL Sensation Assessment Sensation Gross Sensation WNL M6 PT-IP Treatment Start: 12/13/19 08:49 Freq: NEEDED Status: Active Protocol: Document 12/13/19 10:49 AW (Rec: 12/13/19 11:16 AW [email or web address]) Physical Therapy Treatment Exercises Exercises Ankle Pumps,Quad Sets,Heel Slides,Passive Knee Extension Hang Knee ROM Measurement L knee lacks 5 degrees ext; 75 degrees active flexion Education Education Provided Precautions,Weight Bearing Status,Post-Op Packet,Safety Other Treatments Other Treatment Performed Provided education on role of PT, plan of care, post-op exercises, weightbearing status, and safe use of FWW. M7 PT-IP Assessment and Plan Start: 12/13/19 08:49 Freq: NEEDED Status: Active Protocol: Document 12/13/19 10:49 AW (Rec: 12/13/19 11:16 AW [email or web address]) PT Summary Assessment and Plan Potential Rehabilitation Potential Good Status of Condition at Evaluation Evolving Summary Impairments Pain,ROM,Strength,Balance,Bed Mobility,Transfers,Gait Assessment Summary Uziel is a 64 yo man seen for PT evaluation on POD1 following L TKA revision. He has been NWB LLE since August when he had I&D and antibiotic spacers placed. He has been mobilizing with a manual wheelchair and a FWW but was independent with ADL's . On evaluation, pt required CGA to lift the left leg out of bed but was otherwise SBA for all mobility. He required frequent cueing for weightbearing on the LLE but could correct his gait pattern for ~10 feet at a time before reverting to step-to patterning with decreased LLE weightbearing. PT anticipates he will meet the goals of this plan of care and be safe to discharge home with his father assisting as previously. He will benefit from outpatient PT to address strength, gait, and balance impairments. Goals Bed Mobility Goal Independent Transfer Goal Independent,Front Wheeled Walker,Four Wheeled Walker Gait Goal Independent,Front Wheel Walker ,Four Wheel Walker Gait Distance 200 Other Goals - Gait using FWW or 4WW SBA > 50 feet with improved LLE weightbearing Days to Meet Goals 2 Frequency of Treatment Frequency Of Treatment Twice a Day Treatment Plan Physical Therapy Treatment Plan Bed Mobility Training,Transfer Training,Gait Training, Therapeutic Exercise,Balance Retraining,Post Op Education, Discharge Planning,Hot or Cold Pack,Neuromuscular Re-ed, Coordination Retraining,Manual Therapy Other Recommendations and Next Treatment bed mobility; assess gait with Focus 4WW Discharge Recommendations PT Discharge Recommendations Home with Assistance, Outpatient PT
--- NOTE | 2019-12-13 11:56 | P.DS_ITS ---
History of Present Illness History of Present Illness Date Patient Seen: 12/13/19 Time Patient Seen: 11:56 Chief complaint: [id number] Narrative: see progress note Discharge Providers Provider Date of admission: 12/12/19 11:08 Discharge Date: 12/13/19 Primary care physician: Shruti Sharma Consults: 12/06/19 16:25 Consult to Respiratory Therapy Evaluate & Treat Comment: Physician Instructions: Evaluate and treat 12/12/19 11:36 Consult to Anesthesiology Routine Comment: Consulting Provider: Anesthesiologist Reason for consultation: Regional block for post operative pain control 12/12/19 12:03 Consult to Respiratory Therapy Evaluate & Treat Comment: Physician Instructions: Evaluate and treat 12/12/19 18:42 Consult to Discharge Planning Routine Comment: Consult to Physical Therapy Evaluate & Treat Comment: Physician Instructions: postop TKA protocol Consult to Respiratory Therapy Evaluate & Treat Comment: Physician Instructions: Evaluate and treat Discharge provider: Sammy Schultz PA-C Summary Hospital Course Discharge Diagnosis: PJI left TKA with abx spacer Hospital Course: Date of procedure: 12/12/19 Time of procedure: 16:40 Pre-op diagnosis: PJI left TKA with abx spacer Post-op diagnosis: same Procedure & Clinicians Procedure: revision L TKA Same procedure as scheduled: Yes Indications: left knee PJI s/p expalnt and with abx spacer. Has now completed 3 months abx therapy. Surgeon: Milton Rutherford Manufacturing Director: Sammy Schultz Anesthesia Type: General Operative Notes Findings: No gross infection. Extremely stiff extensor mechanism. Closure Type: non-primary Specimen(s): other (3x tissue culutres) Prosthetic devices, grafts, tissues, transplants, or devices: Escobar and Nephew legion Oxinium size 7 left femoral component constrained Escobar [employer] Nephew 6 mm offset manager nursing home Escobar [employer] Nephew 16 mm x 160 mm Press-Fit stem Escobar [employer] Nephew 5 mm size 7 distal augment Escobar [employer] Nephew 10 mm size 7 distal augments Escobar [employer] Nephew size 5 left tibial base plate Escobar [employer] Nephew 2 mm legion offset manager nursing home Escobar [employer] Nephew 16 mm x 160 mm Press-Fit stem Escobar [employer] Nephew 32 mm oval patella Escobar [employer] Nephew size 5-611 mm constrained polyethylene insert Estimated Blood Loss (mL): 200 Blood products transfused: none Tourniquet time (min): 90 Patient admitted to the hospital for the above-mentioned procedure. Patient consented to the same. Patient taken to the OR yesterday underwent revision left total knee arthroplasty. Patient back in his room recovering well as and in stable condition. Patient's worked with Physical therapy this morning. Patient able to able late well using walker. Has urinated several times since surgery. Pain is well managed. Will discharge home today in stable condition. He may be weight-bearing as tolerated left lower extremity. Exam Vital Signs (past 8 hours): - 12/13/19 07:12 12/13/19 11:02 Temperature 97.9 F 98.4 F Pulse Rate 77 86 Respiratory Rate 18 18 Blood Pressure 104/66 138/75 Pulse Oximetry 99 98 Oxygen Delivery Method Room Air Oxygen Flow Rate 0 Narrative Exam Narrative: See progress note Objective Labs Result Diagrams: 12/13/19 05:45 Labs: Laboratory Results - last 24 hr 12/12/19 12/13/19 21:15 05:45 WBC 12.2 H RBC 3.74 L Hgb 11.8 L 10.6 L Hct 34.8 L 31.1 L MCV 93.1 MCH 31.6 MCHC 33.9 RDW 16.4 H Plt Count 177 Neut % (Auto) 89.4 H Lymph % (Auto) 8.2 L [place] % (Auto) 2.1 L Eos % (Auto) 0.1 L Baso % (Auto) 0.2 Neut # (Auto) 25727 H Lymph # (Auto) 1000 L [place] # (Auto) 300 Eos # (Auto) 0 Baso # (Auto) 0 FAX TO: ORDERED: WOUND Cx and GS COMMENTS: Comment left knee femoral canal tissue; C&S, gram stain Procedure Result Verified Site Gram Stain Final 12/12/191832 No Organism Seen No organisms seen White blood cells Occasional WBC seen Epithelial cells Occasional (0-1) Aerobic Culture for wounds Preliminary 12/13/19847 No growth. Anaerobic Culture Pending RDERED: WOUND Cx and GS COMMENTS: Comment left knee tibial canal tissue for C&S,gram stain Procedure Result Verified Site Gram Stain Final 12/12/191834 No Organism Seen No organisms seen White blood cells Few WBCs Epithelial cells Occasional (0-1) Aerobic Culture for wounds Preliminary 12/13/19847 No growth. Anaerobic Culture Pending Discharge Plan Discharge Plan Patient Disposition: Home Discharge comment: home today Discharge orders & Medications Prescriptions: New aspirin 81 mg Tablet,Delayed Release (Dr/Ec) 81 mg PO BID Qty: 60 RF: 0 oxycodone 5 mg Tablet 5 mg PO Q3HR PRN (Reason: Pain, Moderate (4-6)) Qty: 60 RF: 0 Continued sildenafil [Viagra] 100 mg Tablet 100 mg PO DAILY PRN (Reason: Sexual Activity) RF: 0 acetaminophen 325 mg Tablet 975 mg PO TID Qty: 60 RF: 0 sumatriptan succinate [Imitrex] 25 mg Tablet 50 mg PO Q2H PRN (Reason: Migraines) Qty: 30 RF: 0 ibuprofen 400 mg Tablet 400 mg PO Q4H PRN (Reason: Pain) Qty: 90 RF: 0 docusate sodium [DOK] 100 mg Capsule 100 mg PO BID Qty: 20 RF: 0 oxycodone 5 mg tablet 5 - 10 mg PO Q4H PRN (Reason: pain) RF: 0 Follow up/Referrals: Milton Rutherford MD [Physician] - (1 wk) Shruti Sharma [Primary Care Provider] - Diet/Activity/Treatments Diet: Diet as Tolerated Activity: WBAT left LE Cold/Heat Therapy: ice as needed Other treatments: May remove Ej wrap after 48-72 hours. Okay to loosen wrap if too tight. Skin/Wound/Dressing Care Report to your healthcare provider any signs of infection, such as:: chills, fever, increased pain, unusual drainage and unusual redness Dressing: keep clean and dry Visit Report/Discharge Packet Instructions: DI for Knee Replacement, How to Prevent Falls, DI for Prescription Opioid Use Stand Alone Forms: Surgery Discharge Discharge Data Primary Care Provider: Shruti Sharma Quality VTE Deep Vein Thrombosis/Pulmonary Embolism Present on Admission: No
--- NOTE | 2019-12-13 14:00 | PT.IPTN ---
Current Diagnoses Infection and inflammatory reaction due to other internal joint prosthesis, sequela (12/12/19) Presence of left artificial knee joint (12/12/19) Surgery Performed Operation Date: 12/12/19 13:00 Actual Procedures p Removal of static antibiotic spacer and revision total knee arthroplasty(Left) - Milton Rutherford MD Physical Therapy Treatment Note M2 PT-IP Current Condition Start: 12/13/19 08:49 Freq: NEEDED Status: Active Protocol: Document 12/13/19 10:49 AW (Rec: 12/13/19 11:16 AW [id number]) Physical Therapy Current Condition Current Condition Evaluation Date 12/13/19 Treatment Diagnosis s/p L TKA revision, impaired mobility Weight Bearing Status Weight Bearing Status Weight Bear as Tolerated M3 PT-IP Subjective Start: 12/13/19 08:49 Freq: NEEDED Status: Active Protocol: Document 12/13/19 13:42 AW (Rec: 12/13/19 14:00 AW [id number]) Subjective Physical Therapy Visit Type Type Treatment Note Visit Start Time 13:15 Visit Stop Time 13:41 Total Visit Minutes 26 Therapy Pain Assessment Pain When Pain Assessed During Mobility Pain Present Pain Present Pain Reported Location left knee Scale Used pt did not quantify Pain Management Techniques Re-positioning,Timing of Activity with Medications M4 PT-IP Mobility and Gait Start: 12/13/19 08:49 Freq: NEEDED Status: Active Protocol: Document 12/13/19 13:42 AW (Rec: 12/13/19 14:00 AW [id number]) PT-Bed Mobility Assessment Supine to Sit Supine to Sit Standby Assistance Sit to Supine Sit to Supine Standby Assistance Scooting Scooting to Edge of Bed Independent Scooting Up and Down in Bed Independent PT-Transfer Assessment Sit to and From Stand Sit to and from Stand Standby Assistance,Use of Upper Extremities Equipment Transfer Assistive Device Gait Belt,Front Wheeled Walker ,4 Wheeled Walker Orthotic/Prosthetic Devices or Brace: No Transfers Transfer Destination Bed,Chair Transfer Ability Level of Assist Standby Assistance,Use of Upper Extremities Comments Mobility Comments Pt was sitting up in the chair upon therapist arrival. He completed sit to stand using 4WW, demonstrating good safety awareness with the brakes. However, during his first 20 feet ambulation with 4WW, he noticed he was using the 4WW to offload more weight than was safe with the 4WW. He traded the 4WW for FWW and was able to appreciate the difference in support between the two, agreeing that the FWW was the safer choice for him right now. Upon return to the room, he transferred in and out of the bed x 5 SBA for practice, using BUE to lift the operative leg in and out of bed. He then transferred to the toilet and finally to the chair using FWW SBA. At end of session, pt's father arrived with his personal wheelchair to prepare for discharge. Gait Assessment Gait Gait Assistance Required: Standby Assistance,1 Person Assist Distance (Feet) 250 Able to Maintain Weight Bearing Status Yes During Gait Assistive Devices Assistive Device Gait Belt,Front Wheeled Walker ,4 Wheeled Walker Orthotic/Prosthetic Devices or Brace: No Gait Deviations General Gait Pattern Antalgic,Decreased Stride Length,Decreased Feet Clearance,Flexed Trunk,Step-to Gait,Wide Based Gait Factors Limiting Gait Function Factors Limiting Gait Function Decreased Strength,Limited Range of Motion,Pain,Poor Balance,Poor Safety Awareness Comments Gait Comments See mobility comments. M5 PT-IP Objective Assessments Start: 12/13/19 08:49 Freq: NEEDED Status: Active Protocol: Document 12/13/19 10:49 AW (Rec: 12/13/19 11:16 AW [id number]) Orientation Orientation/Cognition Level of Alertness Alert Orientation Name,Day of Week,Place, Situation Language Function Ability No Deficits Noted,Hard of Hearing Safety Awareness Decreased Safety Awareness Memory Description No Deficits Noted Gross Range of Motion Upper Extremity ROM Assessment Within Functional Limits Lower Extremity ROM Assessment Left Impaired Impairments L knee 5-75 degrees Strength Upper Extremity Strength Assessment Within Functional Limits Lower Extremity Strength Assessment Left Impaired Comments Strength Comments Weak quad set LLE. Pt apprehensive Coordination Assessment Gross Coordination Gross Coordination WNL Sensation Assessment Sensation Gross Sensation WNL M6 PT-IP Treatment Start: 12/13/19 08:49 Freq: NEEDED Status: Active Protocol: Document 12/13/19 13:42 AW (Rec: 12/13/19 14:00 AW [id number]) Physical Therapy Treatment Education Education Provided Weight Bearing Status,Safety Other Treatments Other Treatment Performed PT and pt agreed that pt was safer with FWW until he can be assessed by ortho or outpatient PT. M7 PT-IP Assessment and Plan Start: 12/13/19 08:49 Freq: NEEDED Status: Active Protocol: Document 12/13/19 13:42 AW (Rec: 12/13/19 14:00 AW [id number]) PT Summary Assessment and Plan Summary Impairments Pain,ROM,Strength,Balance,Bed Mobility,Transfers,Gait Progress Towards Goals Progressing Toward Goals Assessment Summary Uziel was able to progress gait distance with FWW this session after having LAURA bandage removed. He required verbal cues for stabilization of the left leg during stance without hyperextension. Pt agreed to use the FWW at home since his UE weightbearing was too much for the 4WW making it unsafe at this time. Pt is safe to discharge to home environment with assist and outpatient PT. Goals Bed Mobility Goal Independent Transfer Goal Independent,Front Wheeled Walker,Four Wheeled Walker Gait Goal Independent,Front Wheel Walker ,Four Wheel Walker Gait Distance 200 Other Goals - Gait using FWW or 4WW SBA > 50 feet with improved LLE weightbearing Days to Meet Goals 2 Frequency of Treatment Frequency Of Treatment Twice a Day Treatment Plan Physical Therapy Treatment Plan Bed Mobility Training,Transfer Training,Gait Training, Therapeutic Exercise,Balance Retraining,Post Op Education, Discharge Planning,Hot or Cold Pack,Neuromuscular Re-ed, Coordination Retraining,Manual Therapy Recommendations To Nursing Amount of Assist Needed Standby Assistance Discharge Recommendations PT Discharge Recommendations Home with Assistance, Outpatient PT
--- NOTE | 2019-12-13 14:06 | PC.NURSE ---
discharge Pt states pain controlled with oxycodone. up with PT and FWW. d/c instructions provided to pt and his father. Aware of f/u apts already scheduled with MD and to contact MD with any additional questions or concerns. Hemovac removed as ordered. Did saturate one dressing however when changed it appeared to have stopped, new dressing CDI at d/c. pt will remove this tomorrow. PIV removed prior to d/c. pt states he took all belongings with him. Left in his own w/c with student RN escort to car with his father.
== END 2019-12-13 14:07 | disposition home or self-care (01) | DRG 468 ==
PROVIDERS: Admitting Provider Orthopaedic Surgery Adult Reconstructive Orthopaedic Surgery; PCP Hospitalist; Visit Provider Orthopaedic Surgery Adult Reconstructive Orthopaedic Surgery
PROC: 0SPD0EZ Removal of Articulating Spacer from Left Knee Joint, Open Approach (ICD-10-PCS; principal; 2019-12-12 13:00)
DX: T84.59XA Infection and inflammatory reaction due to other internal joint prosthesis, initial encounter (principal); Z96.652 Presence of left artificial knee joint
CPT/HCPCS: 36415; 64450; 73560; 85014; 85018; 85025; 87070; 87075; 87176; 87205; 97116; 97161; C1776; J0690; J1170; J1885; J2250; J2270; J3010; J3410